=== PATIENT | female | born 1940 | race Caucasian/White ===

== ENCOUNTER → 2017-07-20 | Outpatient (CLI) | payer MEDICARE, OTHER ==
[~2017-07-20] MED LIST: AMLO10 PO; ASPI81CH PO; CLON.2 PO; Indapamide2.5 MG PO; LOSARTAN POTAS100 MG PO; METF500 PO; POTCHL20ER PO; SYNTHROID112 MCG PO
== END | disposition home or self-care (01) ==
LOC: LAB 10:24
DX: L03.116 Cellulitis of left lower limb (principal)
CPT/HCPCS: 87070; 87205

== ENCOUNTER → 2017-08-15 | Outpatient (CLI) | payer MEDICARE, OTHER | END | disposition home or self-care (01) | LOC: LAB 14:30 | DX: L03.116 Cellulitis of left lower limb (principal) | CPT/HCPCS: 87070; 87205 ==

== ENCOUNTER → 2017-09-06 | Outpatient (CLI) | payer MEDICARE, OTHER | END | disposition home or self-care (01) | LOC: LAB 14:30 | DX: L03.115 Cellulitis of right lower limb (principal) | CPT/HCPCS: 87070; 87205 ==

== ENCOUNTER → 2017-10-11 | Outpatient (CLI) | payer MEDICARE, OTHER | END | disposition home or self-care (01) | LOC: LAB SHORT 10:58 → LAB 10:58 | DX: L03.116 Cellulitis of left lower limb (principal) | CPT/HCPCS: 87070; 87205 ==

== ENCOUNTER → 2017-10-18 | Outpatient (CLI) | payer MEDICARE, OTHER | END | disposition home or self-care (01) | LOC: LAB SHORT 11:11 → LAB 11:11 | DX: L08.0 Pyoderma (principal); I83.028 Varicose veins of left lower extremity with ulcer other part of lower leg | CPT/HCPCS: 87070; 87205 ==

== ENCOUNTER → 2017-11-14 | Outpatient (CLI) | payer MEDICARE, OTHER | END | disposition home or self-care (01) | LOC: LAB SHORT 13:52 → LAB 13:52 | DX: L03.116 Cellulitis of left lower limb (principal) | CPT/HCPCS: 87070; 87077; 87186; 87205 ==

== ENCOUNTER → 2017-12-25 | Outpatient (CLI) | payer MEDICARE, OTHER | LOC: LAB SHORT 06:40 → OLS 06:40 | DX: R19.7 Diarrhea, unspecified (principal); Z79.899 Other long term (current) drug therapy | CPT/HCPCS: 87493 ==

== ENCOUNTER → 2018-01-02 | Outpatient (CLI) | payer MEDICARE, OTHER | END | disposition home or self-care (01) | LOC: LAB 11:13 → LAB SHORT 11:13 | DX: L03.116 Cellulitis of left lower limb (principal) | CPT/HCPCS: 87070; 87077; 87186; 87205 ==

== ENCOUNTER → 2018-01-23 | Outpatient (CLI) | payer MEDICARE, OTHER | END | disposition home or self-care (01) | LOC: LAB SHORT 10:30 → LAB 10:30 | DX: L03.116 Cellulitis of left lower limb (principal) | CPT/HCPCS: 87070; 87205 ==

== ENCOUNTER → 2018-02-06 | Outpatient (CLI) | payer MEDICARE, OTHER | END | disposition home or self-care (01) | LOC: PLD 07:55 → LAB SHORT 07:55 | DX: L98.9 Disorder of the skin and subcutaneous tissue, unspecified (principal) | CPT/HCPCS: 88305; 88313 ==

== ENCOUNTER → 2018-02-06 | Outpatient (CLI) | payer MEDICARE, OTHER | END | disposition home or self-care (01) | LOC: LAB 16:34 → LAB SHORT 16:34 | DX: L03.116 Cellulitis of left lower limb (principal) | CPT/HCPCS: 87070; 87077; 87186; 87205 ==

== ENCOUNTER → 2018-02-28 | Outpatient (CLI) | payer MEDICARE, OTHER | LOC: LAB 09:37 → LAB SHORT 09:37 → LAB FUT 02-27 10:50 | DX: K52.1 Toxic gastroenteritis and colitis (principal) | CPT/HCPCS: 87493 ==

== ENCOUNTER 2019-02-06 09:23 | Inpatient (IN) | payer MEDICARE, OTHER ==
[~2019-02-06] VITALS: Ht 162.6 cm; Wt 91.2 kg
[2019-02-06 10:08] LABS: BASOPHILS ABSOLUTE AUTO 0.03 K/mm3 (0.00-0.23); BASOPHILS PERCENT AUTO 0 % (0-2); EOSINOPHILS ABSOLUTE AUTO 0.04 K/mm3 (0.00-0.68); EOSINOPHILS PERCENT AUTO 1 % (0-6); Hematocrit 40.1 % (33.0-51.0); Hemoglobin 13.1 g/dL (11.5-16.0); IMMATURE GRAN ABSOLUTE AUTO 0.01 K/mm3 (0.00-0.10); IMMATURE GRAN PERCENT AUTO 0 % (0-1); LYMPHOCYTES ABSOLUTE AUTO 2.57 K/mm3 (0.84-5.20); LYMPHOCYTES PERCENT AUTO 32 % (21-46); MONOCYTES ABSOLUTE AUTO 0.51 K/mm3 (0.16-1.47); MONOCYTES PERCENT AUTO 6 % (4-13); Mean Corpuscular HGB 29.2 pg (26.0-34.0); Mean Corpuscular HGB Conc 32.7 g/dL (31.5-36.5); Mean Corpuscular Volume 90 fL (80-100); Mean Platelet Volume 9.5 fL (9.1-12.4); NEUTROPHILS ABSOLUTE AUTO 4.84 K/mm3 (1.96-9.15); NEUTROPHILS PERCENT AUTO 61 % (41-73); Platelet Count 480 K/mm3 (150-400); RDW Coefficient Variation 12.9 % (11.7-14.2); RDW Standard Deviation 42.3 fL (35.1-46.3); Red Blood Cell Count 4.48 M/mm3 (3.80-5.20)
[2019-02-06 10:34] LABS: Alanine Aminotransfer (ALT/SGP 28 U/L (12-78); Albumin, Blood 4.3 g/dL (3.4-5.0); Alk Phos 180 U/L (50-136); Anion Gap 13 mmol/L (6-16); Aspartate Aminotrans (AST/SGOT 13 U/L (12-37); Bilirubin, Total 0.7 mg/dL (0.1-1.0); Blood Urea Nitrogen 23 mg/dL (8-24); Bun/Creatinine Ratio 26.2 (12.0-20.0); CO2, Blood 20 mmol/L (21-32); Calcium, Blood 9.4 mg/dL (8.5-10.1); Chloride, Blood 105 mmol/L (98-108); Creatinine, Blood 0.88 mg/dL (0.40-1.00); Globulin, Blood 4.2 g/dL (2.2-4.0); Glomerular Filtration Rate >60 (60-); Glucose, Blood 180 mg/dL (70-99); Potassium, Blood 4.3 mmol/L (3.5-5.5); Sodium, Blood 138 mmol/L (136-145); Total Protein, Blood 8.5 g/dL (6.4-8.2)
[2019-02-06 10:48] LABS: Troponin I 0.101 ng/mL (0.000-0.040)
[2019-02-06 10:49] LABS: International Normalized Ratio 0.97; Prothrombin Time Results 10.3 Sec (9.7-11.5)
[2019-02-06 10:50] LABS: Thyroid Stimulating Hormone 2.67 uIU/mL (0.360-4.800)
[2019-02-06 12:31] LABS: Source, Urine Clean Catch
[2019-02-06 12:35] LABS: Bilirubin, Urine Neg (Neg); Blood, Urine Neg (Neg); Glucose Qualitative, Urine Neg (Neg); Ketones, Urine 1+ (Neg); Leukocyte Esterase, Urine 1+ (Neg); Nitrite, Urine Neg (Neg); Protein, Urine 2+ (Neg); Specific Gravity, Urine 1.015 (1.003-1.022); Urobilinogen, Urine NORM (Normal)
[2019-02-06 12:46] LABS: Appearance, Urine Clear (Clear); Color, Urine Yellow (P-Yellow)
[2019-02-06 12:49] LABS: Bacteria Rare /hpf; Red Blood Cells, Urine 0-2 /hpf (0-2); Squamous Epithelial Cells Mod /hpf (Few)
[2019-02-06 12:50] LABS: Yeast/Fungi Urine Rare /hpf
[2019-02-06] MEDS ORDERED: METF500 PO (15:03)
[2019-02-06] MEDS ORDERED: ZESTRIL40 MG PO (15:03)
[2019-02-06] MEDS ORDERED: PROBIOTIC1 EAC1 PO (15:04)
[2019-02-06] MEDS ORDERED: SIMV10 PO (15:04)
[2019-02-06] MEDS ORDERED: BISA5EC PO (15:04)
[2019-02-06] MEDS ORDERED: Glucosamine-Ch1 EA23 PO (15:06)
[2019-02-06] MEDS ORDERED: Acetaminophen650 M1 PO (15:06)
[2019-02-06 18:03] LABS: Creatine Kinase MB 12.2 ng/mL (0.0-3.6); Creatine Kinase MB Index 6.8 (0.0-4.0)
[2019-02-06 18:14] LABS: Troponin I 2.69 ng/mL (0.000-0.040)
--- NOTE | 2019-02-06 18:43 | NUR ---
PT ARRIVED TO PCU 5 VIA GURNEY FROM ED. REPORT WAS OBTAINED, FAMILY AT BEDSIDE, PT ABLE TO STAND AND TRANSFER TO BED WITH ONE PERSON ASSIST, SHE IS A/OX3, PLEASANT AND COOPERATIVE WITH CARE, FOLLOWS COMMANDS WELL, DENIES ANY CHEST PAIN, REPORTS IT HEAVY, STATES SHE HAS CHRONIC BACK PAIN, LUNGS ARE CLEAR A BIT DIM IN BASES, IS CURRENTLY ON 3 LITERS 02 VIA N/C, RESP EVEN AND UNLABORED DENIES FEELING SOB, HRIRR, TELE IN PLACE RUNNING AFIB PER MONITOR, SEE STRIP, TRACE EDEMA NOTED TO B/L LE, PPP+2, CAP REFILL <3SEC, VS STABLE, AFEBRILE, IV SITES ARE CLEAR AND PATENT, TO R AND L AC'S, BTX4, ABD FLAT SOFT NONTENDER, VOIDS WITHOUT DIFF, SKIN C/W/D, MAEW, MOLLY, CALL LIGHT IN REACH, ORIENTED TO ROOM LAYOUT, AND CALL SYSTEM.
--- NOTE | 2019-02-06 19:30 | NUR ---
PCU NIGHTSHIFT ASSUMED CARE OF PT APPROX. 1900. PT A&OX4. ASSESSMENT COMPLETED. VITAL SIGNS STABLE. PT REPORTS HAVING A HEADACHE THAT COMES AND GOES BUT CURRENLTY TOLERABLE AT THIS TIME. ASSESSED PT NUEROLIGICAL STATUS AND ALL FINDINGS WNL. ALTHOUGH WHEN NUEORLOGIST IN TO SEE PT THIS EVENING AND ASSESSED PT ABILITY TO READ. PT WAS UNABLE TO MAKE SENSE OF WORDS WHEN READING. PT HEART RHYTHM REMAINS IN A. FIB WITH HEART RATE AVERAGING 110'S. PT ABLE TO AMBULATE TO BATHROOM AND TOLERATED WELL. PT REPORTS THAT NOTHING FEELS OUT OF THE NORMAL WITH THIS. BED IN LOW POSITION, CALL LIGHT IN REACH, AND PT DENIES ANY NEEDS
[2019-02-07 00:50] LABS: Creatine Kinase MB 17.1 ng/mL (0.0-3.6); Creatine Kinase MB Index 7.4 (0.0-4.0)
[2019-02-07 00:51] LABS: Troponin I 3.79 ng/mL (0.000-0.040)
--- NOTE | 2019-02-07 01:20 | NUR ---
NOTE PT AWOKE TO USE RESTROOM. AT THIS TIME PEER STAFF MEMEBER ASSISTED PT TO BATHROOM. PEER STAFF MEMBER REPORTED THAT PT REPORTED SHE WAS FEELING NAUSEOUS. PT HAD AN EPISODE OF EMESIS AND REPORTS HER VISION WAS BLURRY AND DIDNT FEEL WELL. ASSESSED PT FURTHER AND NOTED PT TO HAVE RECEPTIVE AND EXPRESSIVE APHAGIA. WHEN ASKED PT HER FIRST AND LAST NAME, PT WAS SLOW TO RESPOND WITH LAST NAME. SHE HAD A HARD TIME SPEAKING THE CORRECT WORD. AFTER ABOUT 5 MINUTES THESE SYSMPTOMS IMPROVED. HAD PEER RN COME IN AND ASSIST WITH NEURO ASSESSMENT. PT REMAINED A&OX4. DURING THE ENTIRE TIME. WILL CONTINUE TO MONITOR PT. PT CURRENLTY BACK IN BED RESTING.
[2019-02-07 03:35] LABS: BASOPHILS ABSOLUTE AUTO 0.02 K/mm3 (0.00-0.23); BASOPHILS PERCENT AUTO 0 % (0-2); EOSINOPHILS PERCENT AUTO 0 % (0-6); Hematocrit 41.5 % (33.0-51.0); Hemoglobin 13.5 g/dL (11.5-16.0); IMMATURE GRAN ABSOLUTE AUTO 0.03 K/mm3 (0.00-0.10); IMMATURE GRAN PERCENT AUTO 0 % (0-1); LYMPHOCYTES ABSOLUTE AUTO 2.16 K/mm3 (0.84-5.20); LYMPHOCYTES PERCENT AUTO 17 % (21-46); MONOCYTES ABSOLUTE AUTO 0.85 K/mm3 (0.16-1.47); MONOCYTES PERCENT AUTO 7 % (4-13); Mean Corpuscular HGB 29.9 pg (26.0-34.0); Mean Corpuscular HGB Conc 32.5 g/dL (31.5-36.5); Mean Corpuscular Volume 92 fL (80-100); Mean Platelet Volume 9.9 fL (9.1-12.4); NEUTROPHILS ABSOLUTE AUTO 9.84 K/mm3 (1.96-9.15); NEUTROPHILS PERCENT AUTO 76 % (41-73); Platelet Count 513 K/mm3 (150-400); RDW Coefficient Variation 13.2 % (11.7-14.2); RDW Standard Deviation 44.1 fL (35.1-46.3); Red Blood Cell Count 4.52 M/mm3 (3.80-5.20)
[2019-02-07 03:57] LABS: Albumin, Blood 3.9 g/dL (3.4-5.0); Albumin/Globulin Ratio 0.9 (0.8-1.8); Bilirubin, Total 0.7 mg/dL (0.1-1.0); Bun/Creatinine Ratio 20.4 (12.0-20.0); Calcium, Blood 9.6 mg/dL (8.5-10.1); Creatinine, Blood 1.08 mg/dL (0.40-1.00); Globulin, Blood 4.4 g/dL (2.2-4.0); Magnesium, Blood 2.2 mg/dL (1.6-2.4); Potassium, Blood 4.8 mmol/L (3.5-5.5); Total Protein, Blood 8.3 g/dL (6.4-8.2)
--- NOTE | 2019-02-07 04:31 | NUR ---
NOTE PT HEART RHYTHM CONVERTED FROM A.FIB TO NORMAL SINUS AT APPROX. 0417. HEART RATE CURRENTLY IN 60'S VIA CHIEF ELECTRICIAN
--- NOTE | 2019-02-07 05:18 | NUR ---
SHIFT SUMMARY PT PLEASANT, COOPERATIVE AND USES CALL LIGHT APPROPRAITELY. PT REMAINS A&OX4. AFTER EPISODE OF BURRIED VISION NOTED PREVIOUSLY PT DID NOT HAVE ANY MORE EPISODES OF THIS, ALTHOUGH PT DID CONTINUE TO HAVE SLIGHT EXPRESSIVE DISPHAGIA. AND SLIGHTLY SLOW TO RESPOND AT TIMES. READING WORDS REMAINS DIFFICULT FOR PT. PT HEART RHYTHM REMAINS NSR IN 60'S AT THIS TIME. HEPARIN DRIP CONTINUES TO RUN. PT HAS DENIED CHEST PAIN, DIZZINESS, LIGHTHEADNESS OR SOB FOR DURATION OF SHIFT. PT CURRENTLY RESTING AT THIS TIME. BED IN LOW POSITION, CALL LIGHT IN REACH AND PT DENIES ANY NEEDS AT THIS TIME. WILL CONTINUE TO MONIOR UNTIL HANDOFF TO DAYSHIFT RN.
--- NOTE | 2019-02-07 05:41 | NUR ---
NOTE PT HAS ATTEMPTED TO GET OUT OF BED ON OWN A COUPLE OF TIMES W/ SOME INCREASED CONFUSION AT TIMES. EACH TIME PT TANGLED IN IV LINES, AND OXYGEN TUBING. DUE TO PT SAFETY PLACED BED ALARM ON AND THREE SIDE RAILS UP. WILL CONTINUE TO MONITOR.
[2019-02-07 09:11] LABS: Creatine Kinase MB 16.6 ng/mL (0.0-3.6); Creatine Kinase MB Index 6.2 (0.0-4.0)
[2019-02-07 09:13] LABS: Troponin I 4.77 ng/mL (0.000-0.040)
--- NOTE | 2019-02-07 17:43 | NUR ---
SHIFT SUMMARY PT RESTING IN BED THROUGHOUT THE DAY. VSS. ALERT AND ORIENTED TO SELF, PLACE, AND MONTH, DISORIENTED TO YEAR. PT HAS RIGHT SIDED VISUAL DEFICIT NOTED. HAVING DIFFICULTY READING WORDS, BUT RECOGNIZES LETTERS AND THEN CAN READ WHAT IT SAYS. NO OTHER DEFICITS NOTED. LUNG SOUNDS CLEAR, NSR RATE 60s ON TELEMETRY. C/O TINGLING TO BILATERAL FEET. PT AMBULATED WITH STANDBY ASSIST TO BATHROOM THIS AM. 1420 PT RETURNED FROM HEART CENTER. PT HAS BEEN RESTING IN BED SINCE ANGIOGRAM. RIGHT WRIST SOFT, NO BLEED OR HEMATOMA NOTED, TR BAND CDI, ARMBOARD IN PLACE. C/O HEADACHE AFTER ANGIOGRAM, MEDICATED WITH PRN PAIN MEDS. PT TOOK AFTERNOON PILLS WITH WATER AFTER PROCEDURE AND PROMPTLY VOMITED 300 ML GREEN LIQUID EMESIS. ZOFRAN IV GIVEN, PT DECLINES NEED FOR ANYTHING PO AT THIS TIME. FAMILY AT BEDSIDE. PT AND FAMILY EDUCATED ON POST PROCEDURE INSTRUCTIONS FOR PT's WRIST, VERBALIZE UNDERSTANDING. PT NEEDS MULTIPLE REMINDERS THROUGHOUT THE SHIFT. AIR BEING REMOVED FROM TR BAND PER PROTOCOL. R WRIST REMAINS SOFT, NO BLEED OR HEMATOMA. PT ON 2-4L OXYGEN VIA NC, SATURATIONS >90%. WILL CONTINUE TO MONITOR.
--- NOTE | 2019-02-07 20:40 | NUR ---
DR. MINA BEDSIDE WITH PATIENT.
--- NOTE | 2019-02-08 00:54 | NUR ---
ASSUMED CARE OF PATIENT AT APPROXIMATELY 1910 FROM COURTNEY Foreman RN. PATIENT ALERT AND ORIENTED AT TIMES; CONFUSED AT TIMES; REPORTS TROUBLE REMEMBERING WORDS AND REPORTS SHE IS AT HOME AT TIMES; PATIENT ALSO REPORTS EVENTS THAT OCCURED TODAY HAPPENED YESTERDAY; PATIENT REPORTED AT SHIFT CHANGE THAT SHE THOUGHT IT WAS MORNING. PATIENT NEEDS CONTINUOUS REMINDERS NO TO USE RIGHT ARM; NOT TO REMOVE RIGHT ARMBOARD. 5CC OF AIR REMOVED BY THIS RN; TR BAND REMOVED; SOME DRIED BLOOD NOTED; NO PAIN, NUMBNESS, TINGLING, DIZZINESS OR NAUSEA REPORT. NO S/S OF ACTIVE BLEEDING, HEMATOMA OR BRUISING NOTED. ARMBOARD REPLACED MULTIPLE TIMES. PATIENT DOESNT CALL BEFORE AMBUALTION AT TIMES. NSR ON TELE; OXYGEN SATURATION ABOVE 90% ON 3-4 LPM VIA NC; PATIENT REPORTS SHE DOESNT NORMALLY WEAR OXYGEN AT HOME. PATIENT'S SISTERS AND DAUGHTER AT BEDSIDE DURING BEDSIDE REPORT; LEFT WITHIN AN HOUR. PATIENT WAS INCONTINENT OF URINE; REPORTS SHE NORMALLY WEARS PADS AT HOME; ATTENDS PLACED. DR. MINA AT BEDSIDE; REPORTS MOST LIKELY TIA. PATIENT REPORTS "BARE SPOTS" IN MEMORY; ALSO THAT SHE "SEE'S DOUBLE" AT TIMES. PATIENT REMOVES OXYGEN AND ARMBOARD WHILE SLEEPING. VSS. 2X PIV S/L. PATIENT CURRENTLY SLEEPING IN BED; CALL LIGHT IN REACH; BED IN LOWEST POSISTION; BED ALARM ON; WILL CONTINUE TO MONITOR AND ASSESS UNTIL END OF SHIFT.
--- NOTE | 2019-02-08 01:22 | NUR ---
PATIENT HAD REMOVED TELE, GOWN, ARMBOARD AND OXYGEN.
[2019-02-08 04:01] LABS: BASOPHILS ABSOLUTE AUTO 0.01 K/mm3 (0.00-0.23); BASOPHILS PERCENT AUTO 0 % (0-2); EOSINOPHILS PERCENT AUTO 0 % (0-6); Hematocrit 36.1 % (33.0-51.0); Hemoglobin 11.7 g/dL (11.5-16.0); IMMATURE GRAN ABSOLUTE AUTO 0.05 K/mm3 (0.00-0.10); IMMATURE GRAN PERCENT AUTO 0 % (0-1); LYMPHOCYTES ABSOLUTE AUTO 1.45 K/mm3 (0.84-5.20); LYMPHOCYTES PERCENT AUTO 13 % (21-46); MONOCYTES PERCENT AUTO 10 % (4-13); Mean Corpuscular HGB 29.5 pg (26.0-34.0); Mean Corpuscular HGB Conc 32.4 g/dL (31.5-36.5); Mean Corpuscular Volume 91 fL (80-100); Mean Platelet Volume 10.8 fL (9.1-12.4); NEUTROPHILS ABSOLUTE AUTO 8.81 K/mm3 (1.96-9.15); NEUTROPHILS PERCENT AUTO 77 % (41-73); Platelet Count 304 K/mm3 (150-400); RDW Coefficient Variation 13.6 % (11.7-14.2); RDW Standard Deviation 45.2 fL (35.1-46.3); Red Blood Cell Count 3.97 M/mm3 (3.80-5.20); White Blood Cell Count 11.52 K/mm3 (4.00-11.30)
[2019-02-08 05:59] LABS: Albumin, Blood 3.3 g/dL (3.4-5.0); Albumin/Globulin Ratio 0.8 (0.8-1.8); Bilirubin, Total 0.6 mg/dL (0.1-1.0); Bun/Creatinine Ratio 26.1 (12.0-20.0); Calcium, Blood 9.3 mg/dL (8.5-10.1); Creatinine, Blood 1.15 mg/dL (0.40-1.00); Potassium, Blood 4.8 mmol/L (3.5-5.5); Total Protein, Blood 7.3 g/dL (6.4-8.2)
--- NOTE | 2019-02-08 06:46 | NUR ---
PATIENT SLEPT ABOUT SEVEN HOURS; TR BAND REMOVED BEFORE MIDNIGHT; TEGADERM PLACED. PATIENT MORE ALERT AND ORIENTED THIS AM. VSS. WILL CONTINUE TO MONITOR AND ASSESS UNTIL END OF SHIFT.
--- NOTE | 2019-02-08 08:40 | NUR ---
INITIAL ASSESSMENT PATIENT RESTING IN BED UPON ENTERING ROOM. PATIENT AFEBRILE. PATIENT ALERT AND ORIENTED EXCEPT TO TOWN AND THAT WE ARE IN A HOSPITAL. PATIENT SEEMS MOSTLY ORIENTED BUT DOES MAKE CONFUSED STATEMENTS. ONE SUCH STATEMENT MADE WHEN NURSE ON COMPUTER IN ROOM DOCUMENTING. PATIENT STATED " THAT IS SO NEAT THAT IT GOES TO BUSINESS! I WAS JUST WATCHING TV ON THERE!". PATIENT WEAK. SBA TO CHAIR. PATIENT SATTING 90% AND GREATER ON 2 L NC. FAMILY REPORTS THAT PATIENT HAS SLEEP APNEA BUT DOES NOT WEAR MASK OR O2 AT HOME. PATIENT IN SB TO SR, HR 50S TO 60S. BP STABLE. LAST BM NOTED YESTERDAY. ATTENDS IN PLACE FOR INCONTINENCE- C/D/I. SCATTERED BRUISING NOTED. PATTERN DEVELOPER ACCESS SITE TO R RADIAL SITE WNL- NO BLEEDING, BRUISING, HEMATOMA NOTED. IVS FLUSHED AND SALINE LOCKED. BED LOW, CALL LIGHT IN REACH. WILL CONTINUE TO MONITOR PATIENT FREQUENTLY THROUGHOUT SHIFT.
--- NOTE | 2019-02-08 12:23 | NUR ---
PATIENT SLEEPING SOUNDLY UPON ENTERING ROOM. PATIENT HAS NO SIGNS OF PAIN OR DISCOMFORT AT THIS TIME. VITAL SIGNS STABLE. NO ACUTE CHANGES TO REPORT ON AT THIS TIME. REPORT GIVEN TO ASSUMING NURSE, ANNETTA GARCIA.
--- NOTE | 2019-02-08 12:31 | NUR ---
RECEIVED REPORT FROM CASSY JUNIOR RN, ASSUMED CARE, PATIENT IS SLEEPING AT THIS TIME, FAMILY AT BEDSIDE, CALL LIGHT IN REACH, WILL CONTINUE TO MONITOR.
--- NOTE | 2019-02-08 14:09 | NUR ---
REPORT CALLED TO DARRON EARLY RN, ON MEDICAL FLOOR, ROOM 308 STILL BEING CLEANED, WILL CALL WHEN READY.
--- NOTE | 2019-02-08 15:14 | NUR ---
PATIENT TO ROOM 308 VIA WHEELCHAIR WITH ALL BELONGINGS.
--- NOTE | 2019-02-08 15:31 | NUR ---
PT ARRIVED TO THE MEDICAL FLOOR FROM PCU 5 A/OX3, PLEASANT AND COOPERATIVE, THE PT APPEARS TO BE BREATHING EASILY ON RA, THE PT DENIES ANY PAIN AT THIS TIME, PT WAS ORIENTED TO THE ROOM LAYOUT AND CALL SYSTEM, CALL LIGHT IN REACH, TELE BOX VERIFIED THE CORRECT ONE, RT NOTIFIED OF CONTINUOUS BIOX ORDER, FAMILY IS AT THE BEDSIDE
--- NOTE | 2019-02-08 17:04 | NUR ---
PT A/OX3, PLEASANT AND COOPERATIVE, PT IS UP WITH ASSIST, MULTIPLE FAMILY IS AT THE BEDSIDE, THE PT CAME UP FROM THE PCU TODAY ON RA, HOWEVER, HER O2 SATS WERE 86 -89%, O2 WAS REAPLIED AT THIS TIME AT 1.5L/MIN, PT DENIED ANY APIN, HAS PERIODS OF FORGETFULLNESS, PT RIGHT WRIST INSERTION SITE LOOKS CLEAR, CLEAN AND DRY, CALL LIT IN REACH, WILL CONTINUE TO MONITOR AND ASSESS FOR CHANGES
--- NOTE | 2019-02-09 03:50 | NUR ---
sHIFT SUMMARY: pT HAS SLEPT WELL OVERNIGHT WITH NO C/O DISCOMFORT. Right wrist cath site WNL. No swelling or redness noted. Pt on telemetry- bradycardia in the 50's overnight. Lopressor held because of heart ratew. Blood sugar was 157 last pm needing no coverage.
[2019-02-09 05:03] LABS: Albumin, Blood 3.1 g/dL (3.4-5.0); Albumin/Globulin Ratio 0.8 (0.8-1.8); Bilirubin, Total 0.5 mg/dL (0.1-1.0); Bun/Creatinine Ratio 25.9 (12.0-20.0); Calcium, Blood 8.9 mg/dL (8.5-10.1); Creatinine, Blood 1.93 mg/dL (0.40-1.00); Globulin, Blood 3.9 g/dL (2.2-4.0); Potassium, Blood 4.7 mmol/L (3.5-5.5)
--- NOTE | 2019-02-09 16:29 | NUR ---
PT IS A/OX3, PLEASANT AND COOPERATIVE, THE PT IS UP WITH MINIMAL ASSIST, TO THE CHAIR AND BATHROOM, THE PT IS MILDLY SOB WITH ACTIVITY, THE PT APPEARS TO BE BREATHING EASILY AT REST ON 2L/MIN O2 VIA NC, THE PT'S HR REMAINED BRAYCARDIC T/O THE SHIFT AND HER LOPRESSOR WAS HELD, PT YOHANA JANG SHOWER TODAY, THE PT HAS HAD MULTIPLE FAMILY AT THE BEDSIDE T/O THE DAY, CALL LIGHT IN REACH
--- NOTE | 2019-02-10 03:20 | NUR ---
SHIFT SUMMARY PATIENT HAD NO ACUTE CHANGES OBSERVED THIS SHIFT. AXO X3 AND SBA TO INDEPENDENT IN ROOM. PIV REMAINS INTACT. CBG 116. ON 1/2 L O2 NC. FIRE HYDRANT OPERATOR REPORTS NSR 76 W/PVC. PATIENT LOPRESSOR HELD DURING DAY SHIFT AND BP ELEVATED TO 180/93. SCHEDULE LOPRESSOR GIVEN PER EMAR. HR IN THE 70'S. DENIES PAIN, SOB, AND N/V. AFEBRILE. CALL LIGHT IN REACH. BED IN LOWEST POSITION. WILL CONTINUE TO MONITOR UNTIL DAY SHIFT NURSE ASSUMES CARE.
[2019-02-10 04:40] LABS: Hematocrit 36.1 % (33.0-51.0); Hemoglobin 11.8 g/dL (11.5-16.0); Mean Corpuscular HGB 29.5 pg (26.0-34.0); Mean Corpuscular HGB Conc 32.7 g/dL (31.5-36.5); Mean Corpuscular Volume 90 fL (80-100); Mean Platelet Volume 9.9 fL (9.1-12.4); Platelet Count 410 K/mm3 (150-400); RDW Coefficient Variation 13.1 % (11.7-14.2); White Blood Cell Count 7.63 K/mm3 (4.00-11.30)
[2019-02-10 05:01] LABS: Bun/Creatinine Ratio 37.5 (12.0-20.0); Calcium, Blood 9.5 mg/dL (8.5-10.1); Creatinine, Blood 1.04 mg/dL (0.40-1.00); Potassium, Blood 4.2 mmol/L (3.5-5.5)
--- NOTE | 2019-02-10 08:39 | NUR ---
PT ON RA. PT SATING AT 93 ON RA. PT TOLERATING WELL. DENIES SOB. WILL CONTINUE TO MONITOR.
[2019-02-10] MEDS ORDERED: METO25 PO (09:18)
[2019-02-10] MEDS ORDERED: ELIQUIS2.5 MG PO (09:19)
[2019-02-10] MEDS ORDERED: PANT20 PO (09:20)
[2019-02-10] MEDS ORDERED: FURO20 PO (09:20)
--- NOTE | 2019-02-10 11:50 | NUR ---
PT DISCHARGED PT DISCHARGED AT 1145. PT IN STABLE CONDITION WITH VSS. PT & DAUGHTER EDUCATED ON DC INSTRUCTION & FOLLOW UP APPOINTMENTS/NEW MEDS. BOTH DENIED FURTHER NEED FOR INSTRUCTION. IV REMOVED & INTACT. PT WHEELED OUT BY AIDE & DRIVEN HOME BY DAUGHTER.
--- NOTE | 2019-02-12 10:22 | NUR ---
DR LOPEZ'S OFFICE WILL CALL PATIENT TO SET UP AN APPOINTMENT WITHIN ONE WEEK OF DISCGARGE.
== END 2019-02-10 11:49 | disposition home health service (06) | DRG 280 ==
LOC: ER 09:23 → PCU 15:13 → MEDS 02-08 15:07 → ENPENDDIS 02-10 09:06 → MEDS 02-10 11:49
PROVIDERS: Emergency Medicine; Internal Medicine Interventional Cardiology; ADMIT Internal Medicine
PROC: 4A023N7 Measurement of Cardiac Sampling and Pressure, Left Heart, Percutaneous Approach (ICD-10-PCS; principal; 2019-02-07)
PROC: B210YZZ Fluoroscopy of Single Coronary Artery using Other Contrast (ICD-10-PCS; 2019-02-07)
DX: I48.0 Paroxysmal atrial fibrillation (principal); I21.4 Non-ST elevation (NSTEMI) myocardial infarction; J96.01 Acute respiratory failure with hypoxia; N17.9 Acute kidney failure, unspecified; G45.9 Transient cerebral ischemic attack, unspecified; I50.20 Unspecified systolic (congestive) heart failure; I51.81 Takotsubo syndrome; E03.9 Hypothyroidism, unspecified; E11.9 Type 2 diabetes mellitus without complications; I11.0 Hypertensive heart disease with heart failure; G25.81 Restless legs syndrome; E78.5 Hyperlipidemia, unspecified
CPT/HCPCS: 36415; 70450; 70496; 70498; 70551; 71046; 80048; 80053; 81001; 82550; 82553; 82947; 83735; 84443; 84484; 85025; 85027; 85347; 85610; 85730; 87086; 93005; 93010; 93458; 93571; 96365-59; 96366; 96368; 96372-59; 96376-59; 97116; 97162; 97530; 99152; 99153; 99285-25; A9270; C1769; C1887; C1894; C8929; C9113; J1644; J1940; J2250; J2405; J3010; J3475; J7030; Q9957; Q9967

== ENCOUNTER → 2019-05-07 | Outpatient (CLI) | payer MEDICARE, OTHER ==
[~2019-05-07] MED LIST changes: +Acetaminophen650 M1 PO; +BISA5EC PO; +ELIQUIS2.5 MG PO; +FURO20 PO; +Glucosamine-Ch1 EA23 PO; +METO25 PO; +PANT20 PO; +PROBIOTIC1 EAC1 PO; +SIMV10 PO; +ZESTRIL40 MG PO
== END | disposition home or self-care (01) ==
LOC: PLD 10:23 → LAB SHORT 10:23
DX: D48.5 Neoplasm of uncertain behavior of skin (principal)
CPT/HCPCS: 88305

== ENCOUNTER → 2019-12-25 | Outpatient (CLI) | payer MEDICARE, OTHER ==
[2019-12-25 20:23] LABS: Adenovirus F 40/41 Not Detected (NOT DETECT); Astrovirus Not Detected (NOT DETECT); Campylobacter Sp Not Detected (NOT DETECT); Cryptosporidium Not Detected (NOT DETECT); Cyclospora Cayetanensis Not Detected (NOT DETECT); E. Coli O157 Not Detected (NOT DETECT); Entamoeba Histolytica Not Detected (NOT DETECT); Enteroaggregative E. coli-EAEC Not Detected (NOT DETECT); Enteropathogenic E. coli-EPEC Not Detected (NOT DETECT); Enterotoxigenic E. coli-ETEC Not Detected (NOT DETECT); Giardia Lamblia Not Detected (NOT DETECT); Norovirus GI/GII Not Detected (NOT DETECT); Plesiomonas Shigelloides Not Detected (NOT DETECT); Rotavirus A Not Detected (NOT DETECT); Salmonella Sp Not Detected (NOT DETECT); Sapovirus Not Detected (NOT DETECT); Shiga Toxin-prod E. coli-STEC Not Detected (NOT DETECT); Shigella/Enteroin E. coli-EIEC Not Detected (NOT DETECT); Vibrio Cholerae Not Detected (NOT DETECT); Vibrio Sp Not Detected (NOT DETECT); Yersinia Enterocolitica Not Detected (NOT DETECT)
== END | disposition home or self-care (01) ==
LOC: LAB 13:57 → LAB SHORT 13:57 → LAB FUT 11-04 11:15
PROVIDERS: Nurse Practitioner Family
DX: R19.7 Diarrhea, unspecified (principal)
CPT/HCPCS: 0097U; 87177; 87209; 89055

== ENCOUNTER → 2020-04-08 | Outpatient (CLI) | payer MEDICARE, OTHER | END | disposition home or self-care (01) | LOC: LAB SHORT 08:50 → PLD 08:50 | DX: D48.5 Neoplasm of uncertain behavior of skin (principal) | CPT/HCPCS: 88305 ==

== ENCOUNTER → 2020-05-19 | Outpatient (CLI) | payer MEDICARE, OTHER ==
[2020-05-19 19:30] LABS: Protein, Urine Quantitative 142.6 mg/dL (0.0-11.9)
== END | disposition home or self-care (01) ==
LOC: LAB 12:33 → LAB SHORT 12:33
PROVIDERS: Internal Medicine
DX: R80.9 Proteinuria, unspecified (principal)
CPT/HCPCS: 81050; 82570; 84156

== ENCOUNTER 2021-08-08 03:08 | Emergency (ER) | payer MEDICARE, OTHER ==
[~2021-08-08] VITALS: Ht 165.1 cm; Wt 92.5 kg
[2021-08-08 03:39] LABS: BASOPHILS ABSOLUTE AUTO 0.02 K/mm3 (0.00-0.23); BASOPHILS PERCENT AUTO 0 % (0-2); EOSINOPHILS PERCENT AUTO 2 % (0-6); Hematocrit 34.7 % (33.0-51.0); Hemoglobin 11.5 g/dL (11.5-16.0); IMMATURE GRAN ABSOLUTE AUTO 0.01 K/mm3 (0.00-0.10); IMMATURE GRAN PERCENT AUTO 0 % (0-1); LYMPHOCYTES ABSOLUTE AUTO 2.08 K/mm3 (0.84-5.20); LYMPHOCYTES PERCENT AUTO 31 % (21-46); MONOCYTES ABSOLUTE AUTO 0.64 K/mm3 (0.16-1.47); MONOCYTES PERCENT AUTO 10 % (4-13); Mean Corpuscular HGB Conc 33.1 g/dL (31.5-36.5); Mean Corpuscular Volume 88 fL (80-100); NEUTROPHILS ABSOLUTE AUTO 3.77 K/mm3 (1.96-9.15); NEUTROPHILS PERCENT AUTO 57 % (41-73); Platelet Count 339 K/mm3 (150-400); RDW Coefficient Variation 13.3 % (11.7-14.2); RDW Standard Deviation 42.9 fL (35.1-46.3); Red Blood Cell Count 3.96 M/mm3 (3.80-5.20); White Blood Cell Count 6.62 K/mm3 (4.00-11.30)
[2021-08-08 03:57] LABS: Bun/Creatinine Ratio 19.8 (12.0-20.0); Calcium, Blood 8.6 mg/dL (8.5-10.1); Creatinine, Blood 1.06 mg/dL (0.40-1.00); Potassium, Blood 3.1 mmol/L (3.5-5.5)
== END 2021-08-08 05:11 | disposition home or self-care (01) ==
LOC: ER 03:08
PROVIDERS: Student in an Organized Health Care Education/Training Program
DX: R04.0 Epistaxis (principal); I10 Essential (primary) hypertension; E11.9 Type 2 diabetes mellitus without complications; Z79.899 Other long term (current) drug therapy; Z79.84 Long term (current) use of oral hypoglycemic drugs
CPT/HCPCS: 30903; 36415; 80048; 85025; 99283-25; A9270

== ENCOUNTER → 2022-07-26 | Outpatient (CLI) | payer MEDICARE, OTHER | LOC: LAB SHORT 08:01 → PLD 08:01 | DX: D04.5 Carcinoma in situ of skin of trunk (principal) | CPT/HCPCS: 88305 ==

== ENCOUNTER 2022-11-24 06:13 | Emergency (ER) | payer MEDICARE, OTHER ==
[~2022-11-24] VITALS: Ht 165.1 cm; Wt 98.0 kg
[2022-11-24 08:57] LABS: BASOPHILS ABSOLUTE AUTO 0.04 K/mm3 (0.00-0.23); BASOPHILS PERCENT AUTO 1 % (0-2); EOSINOPHILS ABSOLUTE AUTO 0.06 K/mm3 (0.00-0.68); EOSINOPHILS PERCENT AUTO 1 % (0-6); Hematocrit 36.9 % (33.0-51.0); Hemoglobin 12.2 g/dL (11.5-16.0); IMMATURE GRAN ABSOLUTE AUTO 0.03 K/mm3 (0.00-0.10); IMMATURE GRAN PERCENT AUTO 0 % (0-1); LYMPHOCYTES PERCENT AUTO 27 % (21-46); MONOCYTES ABSOLUTE AUTO 0.84 K/mm3 (0.16-1.47); MONOCYTES PERCENT AUTO 10 % (4-13); Mean Corpuscular HGB 30.1 pg (26.0-34.0); Mean Corpuscular HGB Conc 33.1 g/dL (31.5-36.5); Mean Corpuscular Volume 91 fL (80-100); Mean Platelet Volume 9.3 fL (9.1-12.4); NEUTROPHILS ABSOLUTE AUTO 5.12 K/mm3 (1.96-9.15); NEUTROPHILS PERCENT AUTO 61 % (41-73); Platelet Count 366 K/mm3 (150-400); RDW Coefficient Variation 13.4 % (11.7-14.2); RDW Standard Deviation 45.5 fL (35.1-46.3); Red Blood Cell Count 4.05 M/mm3 (3.80-5.20); White Blood Cell Count 8.39 K/mm3 (4.00-11.30)
[2022-11-24 09:18] LABS: Albumin, Blood 3.1 g/dL (3.4-5.0); Albumin/Globulin Ratio 0.8 (0.8-1.8); Bilirubin, Total 0.5 mg/dL (0.1-1.0); Bun/Creatinine Ratio 25.2 (12.0-20.0); Calcium, Blood 8.8 mg/dL (8.5-10.1); Creatinine, Blood 1.03 mg/dL (0.40-1.00); Globulin, Blood 4.1 g/dL (2.2-4.0); Potassium, Blood 3.5 mmol/L (3.5-5.5); Total Protein, Blood 7.2 g/dL (6.4-8.2)
[2022-11-24 10:20] VITALS: BP 178/90
== END 2022-11-24 10:21 | disposition home or self-care (01) ==
LOC: ER 06:13
PROVIDERS: Student in an Organized Health Care Education/Training Program
DX: I11.0 Hypertensive heart disease with heart failure (principal); I50.9 Heart failure, unspecified; E11.9 Type 2 diabetes mellitus without complications; Z79.01 Long term (current) use of anticoagulants; Z79.84 Long term (current) use of oral hypoglycemic drugs; Z79.899 Other long term (current) drug therapy
CPT/HCPCS: 80053; 83880; 85025; 93970; A9270

== ENCOUNTER 2023-04-14 01:55 | Day surgery (SDC) | payer MEDICARE, OTHER | END 2023-04-14 23:38 | disposition home or self-care (01) | LOC: WOUND 01:55 | DX: I87.312 Chronic venous hypertension (idiopathic) with ulcer of left lower extremity (principal); L97.822 Non-pressure chronic ulcer of other part of left lower leg with fat layer exposed; E11.622 Type 2 diabetes mellitus with other skin ulcer; L57.0 Actinic keratosis; L81.4 Other melanin hyperpigmentation; L82.1 Other seborrheic keratosis; I87.2 Venous insufficiency (chronic) (peripheral); E11.51 Type 2 diabetes mellitus with diabetic peripheral angiopathy without gangrene; I11.0 Hypertensive heart disease with heart failure; I50.9 Heart failure, unspecified; I48.91 Unspecified atrial fibrillation | CPT/HCPCS: A9270; G0463 ==

== ENCOUNTER 2023-04-22 05:04 | Day surgery (SDC) | payer MEDICARE, OTHER | END 2023-04-22 22:43 | disposition home or self-care (01) | LOC: WOUND 05:04 | DX: E11.622 Type 2 diabetes mellitus with other skin ulcer (principal); L97.822 Non-pressure chronic ulcer of other part of left lower leg with fat layer exposed; L57.0 Actinic keratosis; L81.4 Other melanin hyperpigmentation; L82.1 Other seborrheic keratosis; I87.312 Chronic venous hypertension (idiopathic) with ulcer of left lower extremity; I87.2 Venous insufficiency (chronic) (peripheral); E11.51 Type 2 diabetes mellitus with diabetic peripheral angiopathy without gangrene | CPT/HCPCS: A9270; G0463 ==

== ENCOUNTER 2023-04-29 03:07 | Day surgery (SDC) | payer MEDICARE, OTHER | END 2023-04-29 23:43 | disposition home or self-care (01) | LOC: WOUND 03:07 | DX: I87.312 Chronic venous hypertension (idiopathic) with ulcer of left lower extremity (principal); L57.0 Actinic keratosis; L81.4 Other melanin hyperpigmentation; L82.1 Other seborrheic keratosis; E11.622 Type 2 diabetes mellitus with other skin ulcer; L97.921 Non-pressure chronic ulcer of unspecified part of left lower leg limited to breakdown of skin; I73.9 Peripheral vascular disease, unspecified | CPT/HCPCS: A9270; G0463 ==

== ENCOUNTER 2023-05-06 05:03 | Day surgery (SDC) | payer MEDICARE, OTHER | END 2023-05-06 22:52 | disposition home or self-care (01) | LOC: WOUND 05:03 | DX: E11.622 Type 2 diabetes mellitus with other skin ulcer (principal); I87.2 Venous insufficiency (chronic) (peripheral); L97.822 Non-pressure chronic ulcer of other part of left lower leg with fat layer exposed; L57.0 Actinic keratosis; L81.4 Other melanin hyperpigmentation; L97.921 Non-pressure chronic ulcer of unspecified part of left lower leg limited to breakdown of skin; I87.312 Chronic venous hypertension (idiopathic) with ulcer of left lower extremity; E11.51 Type 2 diabetes mellitus with diabetic peripheral angiopathy without gangrene | CPT/HCPCS: G0463 ==

== ENCOUNTER 2023-05-13 01:53 | Day surgery (SDC) | payer MEDICARE, OTHER | END 2023-05-13 22:50 | disposition home or self-care (01) | LOC: WOUND 01:53 | DX: I87.312 Chronic venous hypertension (idiopathic) with ulcer of left lower extremity (principal); L97.822 Non-pressure chronic ulcer of other part of left lower leg with fat layer exposed; L57.0 Actinic keratosis; L81.4 Other melanin hyperpigmentation; L82.1 Other seborrheic keratosis; L97.921 Non-pressure chronic ulcer of unspecified part of left lower leg limited to breakdown of skin; I87.2 Venous insufficiency (chronic) (peripheral); E11.622 Type 2 diabetes mellitus with other skin ulcer; E11.51 Type 2 diabetes mellitus with diabetic peripheral angiopathy without gangrene | CPT/HCPCS: G0463 ==

== ENCOUNTER 2023-05-20 03:00 | Day surgery (SDC) | payer MEDICARE, OTHER | END 2023-05-20 22:37 | disposition home or self-care (01) | LOC: WOUND 03:00 | DX: I87.312 Chronic venous hypertension (idiopathic) with ulcer of left lower extremity (principal); L57.0 Actinic keratosis; L81.4 Other melanin hyperpigmentation; L82.1 Other seborrheic keratosis; E11.622 Type 2 diabetes mellitus with other skin ulcer; L97.921 Non-pressure chronic ulcer of unspecified part of left lower leg limited to breakdown of skin; E11.51 Type 2 diabetes mellitus with diabetic peripheral angiopathy without gangrene | CPT/HCPCS: G0463 ==

== ENCOUNTER 2023-06-10 03:03 | Day surgery (SDC) | payer MEDICARE, OTHER | END 2023-06-10 23:11 | disposition home or self-care (01) | LOC: WOUND 03:03 | DX: E11.622 Type 2 diabetes mellitus with other skin ulcer (principal); L97.822 Non-pressure chronic ulcer of other part of left lower leg with fat layer exposed; L57.0 Actinic keratosis; L81.4 Other melanin hyperpigmentation; L82.1 Other seborrheic keratosis; L97.921 Non-pressure chronic ulcer of unspecified part of left lower leg limited to breakdown of skin; I87.312 Chronic venous hypertension (idiopathic) with ulcer of left lower extremity; I87.2 Venous insufficiency (chronic) (peripheral); E11.51 Type 2 diabetes mellitus with diabetic peripheral angiopathy without gangrene | CPT/HCPCS: G0463 ==

== ENCOUNTER 2023-06-13 19:33 | Inpatient (IN) | payer MEDICARE, OTHER ==
[~2023-06-13] VITALS: Ht 165.1 cm; Wt 90.5 kg
[2023-06-13 20:51] LABS: BASOPHILS ABSOLUTE AUTO 0.03 K/mm3 (0.00-0.23); BASOPHILS PERCENT AUTO 0 % (0-2); EOSINOPHILS ABSOLUTE AUTO 0.03 K/mm3 (0.00-0.68); EOSINOPHILS PERCENT AUTO 0 % (0-6); Hematocrit 35.1 % (33.0-51.0); Hemoglobin 11.5 g/dL (11.5-16.0); IMMATURE GRAN ABSOLUTE AUTO 0.03 K/mm3 (0.00-0.10); IMMATURE GRAN PERCENT AUTO 0 % (0-1); LYMPHOCYTES ABSOLUTE AUTO 1.28 K/mm3 (0.84-5.20); LYMPHOCYTES PERCENT AUTO 10 % (21-46); MONOCYTES ABSOLUTE AUTO 1.19 K/mm3 (0.16-1.47); MONOCYTES PERCENT AUTO 9 % (4-13); Mean Corpuscular HGB 29.1 pg (26.0-34.0); Mean Corpuscular HGB Conc 32.8 g/dL (31.5-36.5); Mean Corpuscular Volume 89 fL (80-100); Mean Platelet Volume 9.1 fL (9.1-12.4); NEUTROPHILS ABSOLUTE AUTO 10.24 K/mm3 (1.96-9.15); NEUTROPHILS PERCENT AUTO 80 % (41-73); Platelet Count 459 K/mm3 (150-400); RDW Coefficient Variation 13.5 % (11.7-14.2); RDW Standard Deviation 44.3 fL (35.1-46.3); Red Blood Cell Count 3.95 M/mm3 (3.80-5.20)
[2023-06-13 21:13] LABS: Albumin, Blood 3.1 g/dL (3.4-5.0); Albumin/Globulin Ratio 0.6 (0.8-1.8); Bilirubin, Total 0.6 mg/dL (0.1-1.0); Bun/Creatinine Ratio 15.4 (12.0-20.0); Calcium, Blood 8.9 mg/dL (8.5-10.1); Creatinine, Blood 0.98 mg/dL (0.40-1.00); Globulin, Blood 4.9 g/dL (2.2-4.0); Potassium, Blood 3.4 mmol/L (3.5-5.5)
[2023-06-13 23:33] LABS: BODY FLUID RBC 0.002 M/mm3 (0-0)
[2023-06-14 00:04] LABS: RBC Count, Synovial Fluid 2000 /mm3 (0-0); WBC Count, Synovial Fluid 37520 /mm3 (0-180)
[2023-06-14 00:06] LABS: Appearance, Synovial Fluid Cloudy (Clear); Color, Synovial Fluid Yellow (None-P Yel)
[2023-06-14 00:09] LABS: Body Fluid Crystals POS (NEGATIVE)
[2023-06-14 01:01] LABS: Lymphs, Synovial Fluid 1 % (0-15); Monocytes/Macrophages, Synovia 2 % (0-65); Neutrophils, Synovial Fluid 97 % (0-24)
[2023-06-14] MEDS ORDERED: Bisoprolol Fumar5 MG PO (02:28)
[2023-06-14] MEDS ORDERED: HYDRA50 PO (02:29)
[2023-06-14] MEDS ORDERED: ELIQUIS5 M2 PO (02:30)
[2023-06-14 03:41] VITALS: BP 183/67
[2023-06-14 06:35] VITALS: BP 204/79
[2023-06-14 06:39] VITALS: BP 174/151
[2023-06-14 08:15] VITALS: BP 165/73
--- NOTE | 2023-06-14 14:05 | NUR ---
1350- PT REQUESTED AMA PAPERS BUT REFUSED TO SIGN THEM. JESSICA AND THIS RN SIGNED THEM. PT INFORMED OF RISKS VERSUS BENEFITS OF LEAVING THE HOSPITAL. PT HAD A FRIEND PICK HER UP. JUDITH AHN REMOVED PRIOR TO PT LEAVING.
[2023-06-14 15:40] VITALS: BP 168/77
[2023-06-14 19:37] VITALS: BP 153/71
--- NOTE | 2023-06-14 19:43 | NUR ---
SUMMARY- PT AAOX4 THIS SHIFT. PT BEDREST-UNABLE TO LIFT RIGHT LEG. THIS RN TOOK PICTURES OF PT'S LLE WOUND AND PLACED IN CHART. NORCO GIVEN TO PT FOR RIGHT KNEE PAIN THIS SHIFT-PT STATED THE NORCO HELPED.
--- NOTE | 2023-06-15 00:24 | NUR ---
06/14/232113 PT LYING IN BED, DENIES PAIN, WOUND TO Stephen ASCENCIO-PT SEES WOUND CLINIC FOR THIS. BS WAS 180. PUREWICK IN PLACE, CLEAR SLIGHTLY DARK URINE. PT DENIES NEED FOR ANYTHING ELSE AT THIS TIME. NO APPARENT SIGNS OF DISTRESS. CALL LIGHT IS IN REACH.
--- NOTE | 2023-06-15 00:26 | NUR ---
PT LYING IN BED, EYES CLOSED, APPEARS TO BE RESTING. BREATHING IS EVEN, UNLABORED. NO APPARENT SIGNS OF DISTRESS. CALL LIGHT IS IN REACH.
--- NOTE | 2023-06-15 03:42 | NUR ---
PT IS LYING IN BED, EYES CLOSED, APPEARS TO BE RESTING. BREATHING IS EVEN, UNLABORED. NO APPARENT SIGNS OF DISTRESS. CALL LIGHT IS IN REACH.
--- NOTE | 2023-06-15 03:42 | NUR ---
0200 PT LYING IN BED, EYES CLOSED, APPEARS TO BE RESTING. BREATHING IS EVEN, UNLABORED. NO APPARENT SIGNS OF DISTRESS. CALL LIGHT IS IN REACH.
[2023-06-15 04:49] VITALS: BP 175/67
--- NOTE | 2023-06-15 05:10 | NUR ---
PT IS AAO X 4, ON RA. REPORTS PAIN WITH MOVEMENT ONLY AND HAS DECLINED PAIN MEDS SO FAR. USING A PUREWICK, CLEAR YELLOW URINE. BS WAS 180. CHRONIC WOUND ON L ASCENCIO THAT PT GOES TO WOUND CLINIC FOR.
--- NOTE | 2023-06-15 06:03 | NUR ---
PT LYING IN BED, EYES CLOSED, APPEARS TO BE RESTING. BREATHING IS EVEN, UNLABORED. NO APPARENT SIGNS OF DISTRESS. CALL LIGHT IS IN REACH. LAB CALLED WITH A CRITICAL VANCO TROUGH OF 22, CALLED PHARMACIST TO LET HER KNOW, ADRIANNE. WILL WAIT FOR FURTHER ORDERD FROM PHARMACY. NO OTHER CHANGES THIS SHIFT.
[2023-06-15 07:43] VITALS: BP 134/53
[2023-06-15 07:47] LABS: BASOPHILS ABSOLUTE AUTO 0.03 K/mm3 (0.00-0.23); BASOPHILS PERCENT AUTO 0 % (0-2); EOSINOPHILS ABSOLUTE AUTO 0.03 K/mm3 (0.00-0.68); EOSINOPHILS PERCENT AUTO 0 % (0-6); Hematocrit 33.6 % (33.0-51.0); Hemoglobin 11.1 g/dL (11.5-16.0); IMMATURE GRAN ABSOLUTE AUTO 0.05 K/mm3 (0.00-0.10); IMMATURE GRAN PERCENT AUTO 0 % (0-1); LYMPHOCYTES ABSOLUTE AUTO 1.51 K/mm3 (0.84-5.20); LYMPHOCYTES PERCENT AUTO 13 % (21-46); MONOCYTES ABSOLUTE AUTO 1.43 K/mm3 (0.16-1.47); MONOCYTES PERCENT AUTO 12 % (4-13); Mean Corpuscular HGB 28.9 pg (26.0-34.0); Mean Corpuscular Volume 88 fL (80-100); NEUTROPHILS ABSOLUTE AUTO 8.85 K/mm3 (1.96-9.15); NEUTROPHILS PERCENT AUTO 74 % (41-73); Platelet Count 491 K/mm3 (150-400); RDW Coefficient Variation 13.6 % (11.7-14.2); RDW Standard Deviation 43.8 fL (35.1-46.3); Red Blood Cell Count 3.84 M/mm3 (3.80-5.20)
[2023-06-15 08:12] LABS: Bun/Creatinine Ratio 17.1 (12.0-20.0); Calcium, Blood 8.6 mg/dL (8.5-10.1); Potassium, Blood 3.4 mmol/L (3.5-5.5)
[2023-06-15 10:15] VITALS: BP 139/72
[2023-06-15 14:31] VITALS: BP 168/75
[2023-06-15 19:33] VITALS: BP 125/56
--- NOTE | 2023-06-15 20:12 | NUR ---
SHIFT SUMMARY PATIENT WITH SOME PAIN THIS AM, MEDICATED PER EMAR, AFTER THAT, DENIES PAIN, UP TO EDGE OF BED WITH PT, UNABLE TO WORK ANY FURTHER. NO ACUTE EVENTS DURING SHIFT. BED IN LOW POSIITON, CALL LIGHT IN REACH. PATIENT USES CALL LIGHT APPROPRIATELY.
--- NOTE | 2023-06-16 04:39 | NUR ---
1900: ASSUMED CARE OF PT. REPORT RECEIVED FROM MIGUEL ÁNGEL RN. PT IS FOUND TO BE LAYING ON HER BACK IN BED WITH HOB ELEVATED. BREATHING IS EVEN AND UNLABORED, NO ACUTE DISTRESS NOTED. FAMILY A THE BEDSIDE. PT IS A/O, VSS. MEDICAIONS PROVIDED ORDERED, PT TOLERATED WELL. ASSISTED WITH BRIEF CHANGE, KORIN WICK CHANGE, KORIN CARE PERFORMED. PT TOLERATED WELL. ASSISTED IN BED FOR COMFORT. ALL NEEDS ADDRESSED DURING THE SHIFT. SAFETY MEASURES TAKEN. PT WAS ABLE TO SLEEP MOST OF THE NIGHT.
[2023-06-16 04:47] VITALS: BP 163/69
[2023-06-16 07:32] VITALS: BP 142/67
--- NOTE | 2023-06-16 09:51 | NUR ---
pt sitting up in a chair, a/ox4, pleasant and coopertive with care, follows commands well, denies pain at this time and had a great night with good rest, lungs are clear in upper han, dim in bases, on r/a, resp even and unlabored, no cough noted, hrr, 2+ edema noted to b/l le, ppp faint, cap refill <3 sec, vs stable, afebrile, piv site to rhand is clear and patent, btx4, abd flat soft nontender, voids via purwick, clear yellow urine, skin c/w/d, except the left ho has dressing in place without drainage, rosa barrientos, call light in reach. no needs at this time.
[2023-06-16 11:04] LABS: BASOPHILS ABSOLUTE AUTO 0.03 K/mm3 (0.00-0.23); BASOPHILS PERCENT AUTO 0 % (0-2); EOSINOPHILS PERCENT AUTO 1 % (0-6); Hematocrit 32.9 % (33.0-51.0); Hemoglobin 10.7 g/dL (11.5-16.0); IMMATURE GRAN ABSOLUTE AUTO 0.02 K/mm3 (0.00-0.10); IMMATURE GRAN PERCENT AUTO 0 % (0-1); LYMPHOCYTES ABSOLUTE AUTO 1.03 K/mm3 (0.84-5.20); LYMPHOCYTES PERCENT AUTO 11 % (21-46); MONOCYTES ABSOLUTE AUTO 0.65 K/mm3 (0.16-1.47); MONOCYTES PERCENT AUTO 7 % (4-13); Mean Corpuscular HGB 28.5 pg (26.0-34.0); Mean Corpuscular HGB Conc 32.5 g/dL (31.5-36.5); Mean Corpuscular Volume 88 fL (80-100); Mean Platelet Volume 9.6 fL (9.1-12.4); NEUTROPHILS ABSOLUTE AUTO 7.81 K/mm3 (1.96-9.15); NEUTROPHILS PERCENT AUTO 81 % (41-73); Platelet Count 577 K/mm3 (150-400); RDW Coefficient Variation 13.7 % (11.7-14.2); RDW Standard Deviation 43.8 fL (35.1-46.3); Red Blood Cell Count 3.76 M/mm3 (3.80-5.20); White Blood Cell Count 9.64 K/mm3 (4.00-11.30)
[2023-06-16 11:34] LABS: Calcium, Blood 8.8 mg/dL (8.5-10.1); Creatinine, Blood 1.18 mg/dL (0.40-1.00); Potassium, Blood 3.3 mmol/L (3.5-5.5)
[2023-06-16 11:45] LABS: Creatinine, Blood 1.16 mg/dL (0.40-1.00); Vancomycin, Trough 17.3 ug/mL (5.0-10.0)
[2023-06-16 14:16] VITALS: BP 135/66
[2023-06-16 18:14] VITALS: BP 143/84
--- NOTE | 2023-06-16 18:29 | NUR ---
pt has had an uneventful day, lots of family in this evening. she sat in a chair for a few hrs this shift. call light in reach.
[2023-06-16 20:06] VITALS: BP 118/55
[2023-06-17 03:08] VITALS: BP 144/73
--- NOTE | 2023-06-17 03:57 | NUR ---
1900: ASSUMED CARE OF PT, REPORT RECEIVED FROM DAY SHIFT RN. PT IS LAYING IN BED WITH HOB ELEVATED, FAMILY AT THE BEDSIDE. PT DISCUSSING D/C TO [facility] TOMORROW. DISCUSSED WOUND CARE PLAN/OPTIONS. PT IS A/O, BREATHING IS EVEN AND UNLABORED. NO ACUTE DISTRESS DURING THIS SHIFT. MEDICATIONS PROVIDED ORDERED. PT TOELRATED WELL WITH WATER. DRESSING TO LLE IS C/D/I. PIV STARTED LEAKING. NEW PIV OBTAINED IN THE LEFT HAND FOR CONTINUATION OF IV ABX. PT TOLERATED WELL. SLEPT MOST OF THE NIGHT WITH COMPLAINTS. ALL NEEDS ADDRESSED AND SAFETY MEASURES TAKEN.
[2023-06-17 08:07] VITALS: BP 135/70
[2023-06-17] MEDS ORDERED: ACET500 PO (11:51)
[2023-06-17] MEDS ORDERED: CELE100 PO (11:54)
[2023-06-17] MEDS ORDERED: COLCHICINE0.6 MG PO (11:55)
[2023-06-17] MEDS ORDERED: FAMO20 PO (11:56)
[2023-06-17] MEDS ORDERED: Isosorbide Mono30 MG PO (11:56)
[2023-06-17] MEDS ORDERED: Norco 5-325 Ta1 EACH PO (11:56)
[2023-06-17] MEDS ORDERED: ALEVE ARTHRITI100 GM TOP (11:57)
[2023-06-17] MEDS ORDERED: SENN187 PO (11:58)
[2023-06-17] MEDS ORDERED: MIRALAX17 GM PO (11:58)
[2023-06-17 12:43] LABS: SARS-Cov-2 (COVID-19) PCR, MMC NEGATIVE (NEGATIVE)
--- NOTE | 2023-06-17 15:39 | NUR ---
PT AWAKE FOR SHIFT REPORT. VERY PLEASANT AND CO-OP WITH CARE. ADMITTED FOR C/O R KNEE PAIN. PT IMPROVING AND ABLE TO MOVE IT IN BED AND UP TO EOB WITHOUT C/O PAIN. PT SITTING UP TO EOB HERSELF FOR MEALS. ABLE TO GET BACK INTO BED HERSELF WELL. DR LOPEZ IN TO SEE PT AND DISCUSS PLAN OF CARE. PT CLEAR FOR D/C TO [facility] BEFORE GOING BACK HOME. PT'S DAUGHTER HERE TO VISIT. D/C ORDERS PLACED. WAREHOUSE SHIFT SUPERVISOR ARRANGED FOR TX VIA W/C. PT ABLE TO DRESS HERSELF WITH SOME ASSIST FROM DAUGHTER. PT ABLE TO TX TO W/C WITH MOSTLY STAND PIVOT AND SM STEPS WITH R KNEE. DAUGHTER TAKING ALL PT BELONGINGS WITH HER. D/C PICTURE TAKEN OF VASCULAR ULCER TO E; SEE CHART. PER PICTURE AND DAUGHTER, WOUND MUCH IMPROVED. NEW DRESSING PLACED PRIOR TO D/C.
== END 2023-06-17 14:00 | disposition hospice, inpatient (51) | DRG 554 ==
LOC: ER 19:33 → MEDS 19:34 → ENPENDDIS 06-17 07:57 → MEDS 06-17 14:00
PROVIDERS: Internal Medicine; Student in an Organized Health Care Education/Training Program; ADMIT Internal Medicine
PROC: 0S9C3ZZ Drainage of Right Knee Joint, Percutaneous Approach (ICD-10-PCS; principal; 2023-06-13)
DX: M11.262 Other chondrocalcinosis, left knee (principal); I48.0 Paroxysmal atrial fibrillation; I10 Essential (primary) hypertension; E11.9 Type 2 diabetes mellitus without complications; E03.9 Hypothyroidism, unspecified; Z86.73 Personal history of transient ischemic attack (TIA), and cerebral infarction without residual deficits; Z85.828 Personal history of other malignant neoplasm of skin; Z79.01 Long term (current) use of anticoagulants; Z79.84 Long term (current) use of oral hypoglycemic drugs
CPT/HCPCS: 20610; 36415; 73562-RT; 80048; 80053; 80202; 82565; 82947; 84550; 85025; 85651; 86140; 87070; 87075; 87205; 89051; 89060; 96365; 96366; 96368; 96375; 96375-59; 97110; 97161; 97530; 99284-25; A9270; C9113; G0008; G0378; J0360; J0696; J3010; J3370; J7050; Q2036; U0002

== ENCOUNTER 2023-07-10 13:37 | Emergency (ER) | payer MEDICARE, OTHER ==
[~2023-07-10] VITALS: Ht 165.1 cm; Wt 89.8 kg
[~2023-07-10 13:37] MED LIST changes: +ACET500 PO; +ALEVE ARTHRITI100 GM TOP; +Bisoprolol Fumar5 MG PO; +CELE100 PO; +COLCHICINE0.6 MG PO; +ELIQUIS5 M2 PO; +FAMO20 PO; +HYDRA50 PO; +Isosorbide Mono30 MG PO; +MIRALAX17 GM PO; +Norco 5-325 Ta1 EACH PO; +SENN187 PO
[2023-07-10 14:48] LABS: BASOPHILS ABSOLUTE AUTO 0.03 K/mm3 (0.00-0.23); BASOPHILS PERCENT AUTO 1 % (0-2); EOSINOPHILS ABSOLUTE AUTO 0.07 K/mm3 (0.00-0.68); EOSINOPHILS PERCENT AUTO 1 % (0-6); Hematocrit 37.9 % (33.0-51.0); IMMATURE GRAN ABSOLUTE AUTO 0.02 K/mm3 (0.00-0.10); IMMATURE GRAN PERCENT AUTO 0 % (0-1); LYMPHOCYTES ABSOLUTE AUTO 1.66 K/mm3 (0.84-5.20); LYMPHOCYTES PERCENT AUTO 28 % (21-46); MONOCYTES ABSOLUTE AUTO 0.46 K/mm3 (0.16-1.47); MONOCYTES PERCENT AUTO 8 % (4-13); Mean Corpuscular HGB 28.9 pg (26.0-34.0); Mean Corpuscular HGB Conc 31.7 g/dL (31.5-36.5); Mean Corpuscular Volume 91 fL (80-100); Mean Platelet Volume 9.9 fL (9.1-12.4); NEUTROPHILS ABSOLUTE AUTO 3.75 K/mm3 (1.96-9.15); NEUTROPHILS PERCENT AUTO 63 % (41-73); Platelet Count 469 K/mm3 (150-400); RDW Coefficient Variation 15.1 % (11.7-14.2); RDW Standard Deviation 50.1 fL (35.1-46.3); Red Blood Cell Count 4.15 M/mm3 (3.80-5.20); White Blood Cell Count 5.99 K/mm3 (4.00-11.30)
[2023-07-10] MEDS ORDERED: ALLO100 PO (15:01)
[2023-07-10 15:06] LABS: Source, Urine Straight Cath
[2023-07-10 15:09] LABS: Appearance, Urine Clear (Clear); Bilirubin, Urine Neg (Neg); Blood, Urine Neg (Neg); Color, Urine Yellow (P-Yellow); Glucose Qualitative, Urine Neg (Neg); Ketones, Urine Neg (Neg); Leukocyte Esterase, Urine 2+ (Neg); Nitrite, Urine Neg (Neg); Protein, Urine 2+ (Neg); Urobilinogen, Urine NORM (Normal)
[2023-07-10 15:13] LABS: Albumin, Blood 3.5 g/dL (3.4-5.0); Albumin/Globulin Ratio 0.7 (0.8-1.8); Bilirubin, Total 0.3 mg/dL (0.1-1.0); Bun/Creatinine Ratio 34.1 (12.0-20.0); Calcium, Blood 9.6 mg/dL (8.5-10.1); Creatinine, Blood 2.96 mg/dL (0.40-1.00); Potassium, Blood 5.9 mmol/L (3.5-5.5); Total Protein, Blood 8.5 g/dL (6.4-8.2)
[2023-07-10 15:23] LABS: Red Blood Cells, Urine 0-2 /hpf (0-2); White Blood Cells, Urine 25-50 /hpf (0-5)
[2023-07-10 15:24] LABS: Bacteria Many /hpf; Squamous Epithelial Cells Few /hpf (Few); Transitional Epithelial Cells Few /hpf (0-Rare)
[2023-07-10 16:06] LABS: Influenza A, PCR NEGATIVE (NEGATIVE); Influenza B, PCR NEGATIVE (NEGATIVE); Resp Syncytial Virus, PCR NEGATIVE (NEGATIVE)
[2023-07-10 16:15] LABS: SARS-Cov-2 (COVID-19) PCR, MMC POSITIVE (NEGATIVE)
[2023-07-10] MEDS ORDERED: CEPH500 PO (16:39)
[2023-07-10 17:40] VITALS: BP 130/54
== END 2023-07-10 17:47 | disposition home or self-care (01) ==
LOC: ER 13:37
PROVIDERS: Physician Assistant; Student in an Organized Health Care Education/Training Program
DX: U07.1 COVID-19 (principal); N39.0 Urinary tract infection, site not specified; I10 Essential (primary) hypertension; E11.9 Type 2 diabetes mellitus without complications; Z79.01 Long term (current) use of anticoagulants; Z79.890 Hormone replacement therapy; Z79.899 Other long term (current) drug therapy
CPT/HCPCS: 0241U; 80053; 81001; 83735; 85025; 87077; 87086; 87186; 93005; 93010; 96365; 96374; 99285-25; J0696; J7030

== ENCOUNTER 2023-07-16 11:19 | Inpatient (IN) | payer MEDICARE, OTHER ==
[~2023-07-16] VITALS: Ht 167.6 cm; Wt 80.9 kg
[~2023-07-16 11:19] MED LIST changes: +ALLO100 PO; +CEPH500 PO
[2023-07-16 12:25] LABS: BASOPHILS ABSOLUTE AUTO 0.04 K/mm3 (0.00-0.23); BASOPHILS PERCENT AUTO 0 % (0-2); EOSINOPHILS ABSOLUTE AUTO 0.05 K/mm3 (0.00-0.68); EOSINOPHILS PERCENT AUTO 1 % (0-6); Hematocrit 39.4 % (33.0-51.0); Hemoglobin 12.5 g/dL (11.5-16.0); IMMATURE GRAN ABSOLUTE AUTO 0.04 K/mm3 (0.00-0.10); IMMATURE GRAN PERCENT AUTO 0 % (0-1); LYMPHOCYTES PERCENT AUTO 12 % (21-46); MONOCYTES ABSOLUTE AUTO 0.65 K/mm3 (0.16-1.47); MONOCYTES PERCENT AUTO 7 % (4-13); Mean Corpuscular HGB 28.8 pg (26.0-34.0); Mean Corpuscular HGB Conc 31.7 g/dL (31.5-36.5); Mean Corpuscular Volume 91 fL (80-100); Mean Platelet Volume 10.2 fL (9.1-12.4); NEUTROPHILS PERCENT AUTO 80 % (41-73); Platelet Count 577 K/mm3 (150-400); RDW Coefficient Variation 16.2 % (11.7-14.2); RDW Standard Deviation 53.5 fL (35.1-46.3); Red Blood Cell Count 4.34 M/mm3 (3.80-5.20); White Blood Cell Count 9.48 K/mm3 (4.00-11.30)
[2023-07-16 13:01] LABS: Albumin, Blood 3.8 g/dL (3.4-5.0); Albumin/Globulin Ratio 0.7 (0.8-1.8); Bilirubin, Total 0.3 mg/dL (0.1-1.0); Calcium, Blood 10.4 mg/dL (8.5-10.1); Creatinine, Blood 4.63 mg/dL (0.40-1.00); Globulin, Blood 5.3 g/dL (2.2-4.0); Potassium, Blood 6.5 mmol/L (3.5-5.5); Total Protein, Blood 9.1 g/dL (6.4-8.2)
[2023-07-16 18:18] VITALS: BP 114/61
[2023-07-17 06:05] VITALS: BP 146/60
[2023-07-17 06:30] LABS: BASOPHILS ABSOLUTE AUTO 0.03 K/mm3 (0.00-0.23); BASOPHILS PERCENT AUTO 0 % (0-2); EOSINOPHILS ABSOLUTE AUTO 0.13 K/mm3 (0.00-0.68); EOSINOPHILS PERCENT AUTO 2 % (0-6); Hematocrit 32.4 % (33.0-51.0); Hemoglobin 10.6 g/dL (11.5-16.0); IMMATURE GRAN ABSOLUTE AUTO 0.02 K/mm3 (0.00-0.10); IMMATURE GRAN PERCENT AUTO 0 % (0-1); LYMPHOCYTES ABSOLUTE AUTO 0.97 K/mm3 (0.84-5.20); LYMPHOCYTES PERCENT AUTO 15 % (21-46); MONOCYTES ABSOLUTE AUTO 0.61 K/mm3 (0.16-1.47); MONOCYTES PERCENT AUTO 9 % (4-13); Mean Corpuscular HGB 28.6 pg (26.0-34.0); Mean Corpuscular HGB Conc 32.7 g/dL (31.5-36.5); Mean Corpuscular Volume 87 fL (80-100); NEUTROPHILS ABSOLUTE AUTO 4.91 K/mm3 (1.96-9.15); NEUTROPHILS PERCENT AUTO 74 % (41-73); Platelet Count 418 K/mm3 (150-400); RDW Coefficient Variation 15.8 % (11.7-14.2); RDW Standard Deviation 49.9 fL (35.1-46.3); Red Blood Cell Count 3.71 M/mm3 (3.80-5.20); White Blood Cell Count 6.67 K/mm3 (4.00-11.30)
[2023-07-17 07:06] LABS: Albumin, Blood 3.1 g/dL (3.4-5.0); Albumin/Globulin Ratio 0.7 (0.8-1.8); Bilirubin, Total 0.3 mg/dL (0.1-1.0); Bun/Creatinine Ratio 53.3 (12.0-20.0); Calcium, Blood 9.6 mg/dL (8.5-10.1); Creatinine, Blood 2.46 mg/dL (0.40-1.00); Globulin, Blood 4.3 g/dL (2.2-4.0); Magnesium, Blood 1.9 mg/dL (1.6-2.4); Phosphorus, Blood 3.9 mg/dL (2.5-4.9); Potassium, Blood 4.4 mmol/L (3.5-5.5); Thyroid Stimulating Hormone 0.106 uIU/mL (0.360-4.800); Total Protein, Blood 7.4 g/dL (6.4-8.2); Uric Acid, Blood 7.7 mg/dL (2.6-6.0)
--- NOTE | 2023-07-17 07:55 | NUR ---
SHIFT SUMMERY. PT RESTING IN BED, PT ALERT AND ORIENTED TO PERSON AND SELF. PT WAS BLADDER SCANED AND HAD 579 IN BLADDER. GOT ORDER FOR SHEN AND PLACED 16 FR CATH WITH OUT ANY DIFFICULTY. GOT 500 ML IMEDIATE RETURN. PT HAS SEEMED TO REST WELL DURING THE NIGHT. CALL LIGHT IN REACH.
[2023-07-17 08:06] VITALS: BP 142/70
[2023-07-17 12:39] LABS: SARS-Cov-2 (COVID-19) PCR, MMC POSITIVE (NEGATIVE)
[2023-07-17 12:55] LABS: Albumin/Globulin Ratio 0.7 (0.8-1.8); Bilirubin, Total 0.3 mg/dL (0.1-1.0); Bun/Creatinine Ratio 56.7 (12.0-20.0); Calcium, Blood 9.3 mg/dL (8.5-10.1); Creatinine, Blood 2.01 mg/dL (0.40-1.00); Globulin, Blood 4.3 g/dL (2.2-4.0); Potassium, Blood 4.2 mmol/L (3.5-5.5); Total Protein, Blood 7.3 g/dL (6.4-8.2)
[2023-07-17 15:27] VITALS: BP 127/76
--- NOTE | 2023-07-17 18:29 | NUR ---
SHIFT SUMMARY Pt remains pleasantly confused to self this shift. Denies pain. VSS. Labs trending right direction. Rosa intact. Frequent turns for comfort and skin integrity. Decreased appetite despite dentures in place. NaBicarb infusing 75/hr this shift.
[2023-07-17 20:13] VITALS: BP 159/77
[2023-07-18 05:26] VITALS: BP 158/70
[2023-07-18 05:46] LABS: Hematocrit 32.7 % (33.0-51.0); Hemoglobin 10.8 g/dL (11.5-16.0)
--- NOTE | 2023-07-18 06:14 | NUR ---
0400 AGREE WITH JUAN GAMINO RN'S ASSESSMENT. WILL TAKE OVER FULL CARE OF PT AT THIS TIME. PT IS CURRENTLY LYING IN BED, EYES CLOSED, APPEARS TO BE RESTING. BREATHING IS EVEN, UNLABORD. NO APPARENT SIGNS OF DISTRESS. CALL LIGHT IS IN REACH.
--- NOTE | 2023-07-18 06:15 | NUR ---
PT LYING IN BED, EYES CLOSED, WAKES EASILY TO VERBAL STIMULI. NO APPARENT SIGNS OF DISTRESS. CALL LIGHT IS IN REACH. NO OTHER CHANGES THIS SHIFT.
--- NOTE | 2023-07-18 06:16 | NUR ---
PT IS AAO TO SELF ONLY. ON RA. SHEN WITH SLIGHTLY DARK YELLOW CLEAR URINE. BAS WAS 142.
[2023-07-18 06:18] LABS: Anion Gap 5 mmol/L (6-16); Blood Urea Nitrogen 90 mg/dL (8-24); Bun/Creatinine Ratio 59.6 (12.0-20.0); CO2, Blood 24 mmol/L (21-32); Calcium, Blood 9.5 mg/dL (8.5-10.1); Chloride, Blood 122 mmol/L (98-108); Creatinine, Blood 1.51 mg/dL (0.40-1.00); Glomerular Filtration Rate 34 (60-); Glucose, Blood 132 mg/dL (70-99); Magnesium, Blood 1.7 mg/dL (1.6-2.4); Phosphorus, Blood 2.9 mg/dL (2.5-4.9); Potassium, Blood 3.7 mmol/L (3.5-5.5); Sodium, Blood 151 mmol/L (136-145)
[2023-07-18 07:24] VITALS: BP 151/74
--- NOTE | 2023-07-18 16:00 | NUR ---
Upon receiving a referral for spiritual care, I visited the patient. She is sleeping when I eneter the pt's rm. She is groggy but tells me that she has good family support and would love a prayer said for her, which I gladly supply. Patient voices much appreciation. She showed signs of an elevated mood. I will continue to remain available to patient and family.
[2023-07-18 16:15] VITALS: BP 169/73
--- NOTE | 2023-07-18 17:54 | NUR ---
SHIFT SUMMARY A&OX1, SELF. COOPERATIVE WITH CARE. DENIES ANY CP/PRESSURE, HEADACHE, OR DIZZINESS. SOB WITH EXERTION PER PT REPORT. NO COMPLAINTS OF PAIN THIS SHIFT. LACK OF APPETITE NOTED. DIETARY SPOKE WITH PT'S DAUGHTER AND SHE ORDERED ENSURES FOR PATIENT. SODIUM BICARB AND D5 RUNNING CONCURRENTLY AT 75ML/HR AT THIS TIME. SHEN CATHETER REMOVED AT 1500. ELECTROMECHANICAL INSPECTOR'S CHANGED PATIENT AT 1745 AND REPORTED PATIENT DIDN'T HAVE ANY OUTPUT. BLADDER SCAN REVEALED 185. ENCOURAGED PT TO TRY TO PEE AND SHE WAS ABLE TO PEE AN UNMEASURABLE AMOUNT IN HER BEDPAN/ATTENDS. PT AND OT WORKED WITH PATIENT AND REPORTED SHE HAD DIFFUCULTY MOVING TO THE SIDE OF THE BED, BUT DID STAND UP BY HERSELF. NO ACUTE EVENTS THIS SHIFT. PATIENT CURRENTLY EATING DINNER WITH DAUGHTER AT BEDSIDE. BED IN THE LOWEST POSITION. CALL LIGHT WITHIN REACH.
[2023-07-18 19:48] VITALS: BP 165/75
--- NOTE | 2023-07-19 03:44 | NUR ---
PT A&OX1-2 PLEASANT AND COOPERATIE WITH CARE, PT TOOK MEDICATION WHOLE WITH WATER, PO INTAKE DECREASED REFUSED NUTRUITONAL SUPPORT BUT DRINK HALF APPLE JUICE, PT HAD INCONTX1 WEARS ATTEND, CALLS APPROPERIATELY CALL STEVENS WITHIN REACH. IV [facility] SODIUM BICARB CONTINUE D5@75ML/HR. LABS WITHIN NORMAL RANGE. PT IS RESTING WELL NONOBSTRUCTIVE SNORE, WAKES EASILY RESPONDS APPROPERAIELY.
[2023-07-19 04:33] VITALS: BP 167/67
[2023-07-19 06:15] LABS: Hematocrit 29.6 % (33.0-51.0); Hemoglobin 9.7 g/dL (11.5-16.0)
[2023-07-19 06:49] LABS: Albumin, Blood 2.6 g/dL (3.4-5.0); Anion Gap 5 mmol/L (6-16); Blood Urea Nitrogen 51 mg/dL (8-24); Bun/Creatinine Ratio 45.5 (12.0-20.0); CO2, Blood 28 mmol/L (21-32); Calcium, Blood 8.8 mg/dL (8.5-10.1); Chloride, Blood 114 mmol/L (98-108); Creatinine, Blood 1.12 mg/dL (0.40-1.00); Glomerular Filtration Rate 49 (60-); Glucose, Blood 142 mg/dL (70-99); Magnesium, Blood 1.6 mg/dL (1.6-2.4); Phosphorus, Blood 2.2 mg/dL (2.5-4.9); Potassium, Blood 3.2 mmol/L (3.5-5.5); Sodium, Blood 147 mmol/L (136-145)
--- NOTE | 2023-07-19 06:51 | NUR ---
ASSUMED CARE OF PT AT 0400. NO CHANGES NOTED. AM MEDS AND PRN TYLENOL RECIEVED PER EMAR. IVF INFUSING W/O ISSUE AT PRESENT. BARRY AND REPORT TO DAY KIM.
[2023-07-19 07:36] VITALS: BP 168/68
--- NOTE | 2023-07-19 16:11 | NUR ---
SHIFT SUMMARY ALERT AND ORIENTED TO SELF. COOPERATIVE WITH CARE. LETHARGIC T/O SHIFT. DENIES ANY CP/PRESSURE, HEADACHE, OR DIZZINESS. SLIGHT SOB PER PT REPORT. NEEDS FREQUENT REMINDERS TO URINATE. HEAVY 2 PERSON ASSIST. NO COMPLAINTS OF PAIN. NO ACUTE CHANGES THIS SHIFT. JUST COMPLETED A FULL BATH AND BED CHANGE. PUREWICK PLACED. D5 RUNNING AT 50MLS/HR. CURRENTLY WATCHING TV. BED IN LOWEST POSITION. CALL LIGHT WITHIN REACH. PLAN FOR DISCHARGE TO SNF OR [facility] TOMORROW.
[2023-07-19 16:36] VITALS: BP 172/81
[2023-07-19 19:33] VITALS: BP 190/76
[2023-07-20 01:05] VITALS: BP 156/85
[2023-07-20 03:34] VITALS: BP 157/69
--- NOTE | 2023-07-20 03:45 | NUR ---
PT A&OX1-2 DAUGHTER AT BEDSIDE, PT REFUSING NUTRITIONAL INTAKE MAKES GAP SOUNDS REPORTS DIFFICULTY SWALLOWING, PT IV IS POSITIONAL RECEIVING D5@50 ML/HR. PT SWOLLOWED MEDICATION WITH DARLIN W/O JOANUTJURGEN. LS ARE DIMINSHED AT BASES, POX 98%, PT HR 66 BPM APICALLY, PT IS ON BEDREST HAS PURWIC IN PLACE VOIDING AGUSTÍN URINE, BED LOWERED, CALL LIGHT IN REACH CALLS APPROPERIATELY WILL CONTINUE TO MONITOR
--- NOTE | 2023-07-20 05:45 | NUR ---
PT UP TO BRP WITH A WALKER/SBA - PT HAS AUDIBLE WHEEZING WITH EXERTION. PT BACK TO BED, PLACED IN TRIPOD POSITION - SATS WNL DURING THIS TIME. RT CALLED FOR BREATHING TREATMENT.
--- NOTE | 2023-07-20 06:01 | NUR ---
PT REPORTS SHE IS "FEELING BETTER." ASKING TO HAVE HOB LOWERED, BECAUSE SHE IS "TIRED AND WOULD LIKE TO TAKE A NAP." REMINDED PT TO CALL FOR ASSIST OUT OF BED, BED ALARM PLACED ON FOR SAFETY. CALL LIGHT AND FLUIDS WITHIN REACH.
--- NOTE | 2023-07-20 06:11 | NUR ---
NO ACUTE CHANGES SINCE KIM CHOI LEFT LAST NOC AT APPX 0330. WILL CONTINUE TO MONITOR PT UNTIL AM SHIFT CHANGE.
[2023-07-20 06:25] LABS: Hematocrit 29.3 % (33.0-51.0); Hemoglobin 9.7 g/dL (11.5-16.0)
[2023-07-20 06:49] LABS: Magnesium, Blood 1.4 mg/dL (1.6-2.4)
[2023-07-20 06:50] LABS: Albumin, Blood 2.4 g/dL (3.4-5.0); Anion Gap 7 mmol/L (6-16); Blood Urea Nitrogen 30 mg/dL (8-24); Bun/Creatinine Ratio 32.4 (12.0-20.0); CO2, Blood 26 mmol/L (21-32); Calcium, Blood 8.8 mg/dL (8.5-10.1); Chloride, Blood 111 mmol/L (98-108); Creatinine, Blood 0.93 mg/dL (0.40-1.00); Glomerular Filtration Rate 61 (60-); Glucose, Blood 133 mg/dL (70-99); Phosphorus, Blood 2.5 mg/dL (2.5-4.9); Potassium, Blood 3.6 mmol/L (3.5-5.5); Sodium, Blood 144 mmol/L (136-145)
[2023-07-20 07:02] VITALS: BP 136/68
[2023-07-20 14:51] VITALS: BP 165/75
== END 2023-07-20 17:08 | DRG 682 ==
LOC: ER 11:19 → MEDS 15:28 → ENPENDDIS 07-20 11:15 → MEDS 07-20 17:08
PROVIDERS: Hospitalist; Internal Medicine Nephrology; Student in an Organized Health Care Education/Training Program; ADMIT Internal Medicine
DX: N17.9 Acute kidney failure, unspecified (principal); G92.8 Other toxic encephalopathy; E87.20 Acidosis, unspecified; N39.0 Urinary tract infection, site not specified; E87.0 Hyperosmolality and hypernatremia; E87.5 Hyperkalemia; E83.52 Hypercalcemia; I12.9 Hypertensive chronic kidney disease with stage 1 through stage 4 chronic kidney disease, or unspecified chronic kidney disease; E11.22 Type 2 diabetes mellitus with diabetic chronic kidney disease; E03.9 Hypothyroidism, unspecified; N18.9 Chronic kidney disease, unspecified; D63.1 Anemia in chronic kidney disease; B96.20 Unspecified Escherichia coli [E. coli] as the cause of diseases classified elsewhere; E86.9 Volume depletion, unspecified; I95.89 Other hypotension; I48.0 Paroxysmal atrial fibrillation; R63.0 Anorexia; E87.6 Hypokalemia; Z79.01 Long term (current) use of anticoagulants; Z86.73 Personal history of transient ischemic attack (TIA), and cerebral infarction without residual deficits; Z79.890 Hormone replacement therapy; Z86.16 Personal history of COVID-19; Z68.26 Body mass index [BMI] 26.0-26.9, adult
CPT/HCPCS: 36415; 71046; 76770; 80053; 80069; 82947; 83735; 84100; 84132; 84295; 84443; 84550; 85014; 85018; 85025; 93005; 93010; 94760; 96365; 96375; 97110; 97162; 97165; 97530; 97535; 99285-25; A9270; J0696; J1644; J1815; J3475; J3480; J7030; J7060; J7070; Q2036; U0002

== ENCOUNTER → 2023-10-12 | Outpatient (CLI) | payer MEDICARE, OTHER ==
[~2023-10-12] MED LIST changes: +GABA100 PO; +MAGNESIUM250 MG PO; +MIRTAZAPINE7.5 M1 PO; +VITAMIN B121000 MCG PO; +VITAMIN D325 MC3 PO
[2023-10-14 01:50] LABS: Creatinine Urine 39.5 mg/dL (27.00-270.00); Microalbumin, Urine Quant. 80.6 mg/L (0.000-20.000); Protein, Urine Quantitative 18.1 mg/dL (0.0-11.9)
== END | disposition home or self-care (01) ==
LOC: LAB 06:00 → LAB SHORT 06:00
PROVIDERS: Internal Medicine Nephrology
DX: N18.30 Chronic kidney disease, stage 3 unspecified (principal); D63.1 Anemia in chronic kidney disease; N25.81 Secondary hyperparathyroidism of renal origin; E55.9 Vitamin D deficiency, unspecified; E78.00 Pure hypercholesterolemia, unspecified; R76.9 Abnormal immunological finding in serum, unspecified; R94.5 Abnormal results of liver function studies; R94.6 Abnormal results of thyroid function studies; D51.8 Other vitamin B12 deficiency anemias; D52.8 Other folate deficiency anemias; D50.9 Iron deficiency anemia, unspecified
CPT/HCPCS: 81050; 82043; 82570; 84156

== ENCOUNTER → 2024-01-26 | Outpatient (CLI) | payer MEDICARE, OTHER ==
[~2024-01-26] MED LIST changes: +AMOX875 PO; +CEFP200 PO; +LEVSOD75 PO; +LISI20 PO
[2024-01-26 17:46] LABS: Source, Urine Clean Catch
[2024-01-26 18:49] LABS: Appearance, Urine Hazy (Clear); Bilirubin, Urine Neg (Neg); Blood, Urine Neg (Neg); Color, Urine Yellow (P-Yellow); Glucose Qualitative, Urine Neg (Neg); Ketones, Urine Neg (Neg); Leukocyte Esterase, Urine 3+ (Neg); Nitrite, Urine Neg (Neg); Protein, Urine 1+ (Neg); Specific Gravity, Urine 1.015 (1.003-1.022); Urobilinogen, Urine NORM (Normal)
[2024-01-26 19:05] LABS: Bacteria Few /hpf; Red Blood Cells, Urine 0-2 /hpf (0-2); Squamous Epithelial Cells Few /hpf (Few); Yeast/Fungi Urine Few /hpf
[2024-01-26 19:06] LABS: Hyaline Casts 0-2 /lpf (0-2)
== END | disposition home or self-care (01) ==
LOC: LAB SHORT 17:44 → LAB 17:44
PROVIDERS: Physician Assistant
DX: N39.0 Urinary tract infection, site not specified (principal)
CPT/HCPCS: 81001; 87077; 87086; 87186

== ENCOUNTER → 2024-04-25 | Outpatient (CLI) | payer MEDICARE, OTHER ==
[2024-04-25 16:36] LABS: Source, Urine Clean Catch
[2024-04-25 17:12] LABS: Bilirubin, Urine Neg (Neg); Blood, Urine Neg (Neg); Glucose Qualitative, Urine Neg (Neg); Ketones, Urine Neg (Neg); Leukocyte Esterase, Urine 3+ (Neg); Nitrite, Urine Neg (Neg); Protein, Urine Neg (Neg); Urobilinogen, Urine NORM (Normal)
[2024-04-25 17:23] LABS: Appearance, Urine Hazy (Clear); Color, Urine Pale Yellow (P-Yellow)
[2024-04-25 17:24] LABS: Bacteria Many /hpf; Hyaline Casts 0-2 /lpf (0-2); Red Blood Cells, Urine Not Seen /hpf (0-2); Squamous Epithelial Cells Few /hpf (Few); Yeast/Fungi Urine Mod /hpf
== END ==
LOC: LAB SHORT 16:35 → LAB 16:35
PROVIDERS: Physician Assistant
DX: N39.0 Urinary tract infection, site not specified (principal)
CPT/HCPCS: 81001; 87077; 87086; 87186

== ENCOUNTER 2024-06-08 13:21 | Inpatient (IN) | payer MEDICARE, OTHER ==
[~2024-06-08] VITALS: Ht 165.1 cm; Wt 71.6 kg
[2024-06-08 13:49] LABS: BASOPHILS ABSOLUTE AUTO 0.03 K/mm3 (0.00-0.23); BASOPHILS PERCENT AUTO 1 % (0-2); EOSINOPHILS ABSOLUTE AUTO 0.22 K/mm3 (0.00-0.68); EOSINOPHILS PERCENT AUTO 4 % (0-6); Hemoglobin 11.8 g/dL (11.5-16.0); IMMATURE GRAN ABSOLUTE AUTO 0.01 K/mm3 (0.00-0.10); IMMATURE GRAN PERCENT AUTO 0 % (0-1); LYMPHOCYTES ABSOLUTE AUTO 1.52 K/mm3 (0.84-5.20); LYMPHOCYTES PERCENT AUTO 26 % (21-46); MONOCYTES ABSOLUTE AUTO 0.43 K/mm3 (0.16-1.47); MONOCYTES PERCENT AUTO 7 % (4-13); Mean Corpuscular HGB 27.5 pg (26.0-34.0); Mean Corpuscular HGB Conc 31.9 g/dL (31.5-36.5); Mean Corpuscular Volume 86 fL (80-100); Mean Platelet Volume 9.5 fL (9.1-12.4); NEUTROPHILS ABSOLUTE AUTO 3.64 K/mm3 (1.96-9.15); NEUTROPHILS PERCENT AUTO 62 % (41-73); Platelet Count 543 K/mm3 (150-400); RDW Coefficient Variation 19.3 % (11.7-14.2); RDW Standard Deviation 59.4 fL (35.1-46.3); Red Blood Cell Count 4.29 M/mm3 (3.80-5.20); White Blood Cell Count 5.85 K/mm3 (4.00-11.30)
[2024-06-08 13:54] LABS: Source, Urine Straight Cath
[2024-06-08 14:01] LABS: Appearance, Urine Hazy (Clear); Bilirubin, Urine Neg (Neg); Blood, Urine Neg (Neg); Color, Urine Yellow (P-Yellow); Glucose Qualitative, Urine Neg (Neg); Ketones, Urine Neg (Neg); Leukocyte Esterase, Urine Neg (Neg); Nitrite, Urine Neg (Neg); Protein, Urine 1+ (Neg); Specific Gravity, Urine 1.015 (1.003-1.022); Urobilinogen, Urine NORM (Normal)
[2024-06-08 14:13] LABS: Albumin, Blood 3.5 g/dL (3.4-5.0); Albumin/Globulin Ratio 0.7 (0.8-1.8); Bilirubin, Total 0.3 mg/dL (0.1-1.0); Bun/Creatinine Ratio 24.9 (12.0-20.0); Creatinine, Blood 2.37 mg/dL (0.40-1.00); Globulin, Blood 4.9 g/dL (2.2-4.0); Potassium, Blood 4.8 mmol/L (3.5-5.5); Total Protein, Blood 8.4 g/dL (6.4-8.2)
[2024-06-08 14:19] LABS: Mucus Light (0-Heavy); Squamous Epithelial Cells Mod /hpf (Few); Transitional Epithelial Cells Few /hpf (0-Rare)
[2024-06-08 14:20] LABS: Amorphous Light (0-Heavy); Bacteria Mod /hpf; Hyaline Casts 0-2 /lpf (0-2); Red Blood Cells, Urine 0-2 /hpf (0-2); White Blood Cells, Urine 0-2 /hpf (0-5)
[2024-06-08] MEDS ORDERED: Lactated Ringer's 1,000 ML IV ONE (14:30)
[2024-06-08] MEDS ORDERED: NS 1,000 ML IV SCH (17:00)
[2024-06-08] MEDS ORDERED: FLU VACC TS2024-25(6MOS UP)/PF 45 MCG/0.5 ML SYRINGE IM SCH (17:05)
[2024-06-08] MEDS ORDERED: CefTRIAXone Sodium 1,000 MG in NS 100 ML IV SCH (18:00)
[2024-06-08 19:52] VITALS: BP 158/88
--- NOTE | 2024-06-08 20:59 | NUR ---
PATIENT IS A NEW ADMIT ON DAY SHIFT JUST PRIOR TO SHIFT CHANGE. AXOX 2-3 WITH CONFUSION, NO YEAR OR PLACE. BEDREST AND ON ROOM AIR. DAUGHTER PRESENT ON ADMIT. LR INFUSING FROM THE ED. REPORTS LIVES AT [facility]. DRESSING TO LEFT ASCENCIO FROM FACILITY FOR SKIN TEAR AND SMALL SORE ON COCCYX. DENIES CHEST PAIN, SOB, AND N/V. WATCHING TV AFTER ASSESSMENT. NS STARTED @ 100mL/HR AND IV ABX INFUSED. CALL LIGHT IN REACH AND BED ALARM. WCTM.
[2024-06-08] MEDS ORDERED: Lactobacil 2-S.Thermo-Bifido 1 1 Cap PO SCH (21:00)
[2024-06-09 04:59] LABS: BASOPHILS ABSOLUTE AUTO 0.03 K/mm3 (0.00-0.23); BASOPHILS PERCENT AUTO 1 % (0-2); EOSINOPHILS ABSOLUTE AUTO 0.36 K/mm3 (0.00-0.68); EOSINOPHILS PERCENT AUTO 6 % (0-6); Hematocrit 33.3 % (33.0-51.0); Hemoglobin 10.7 g/dL (11.5-16.0); IMMATURE GRAN ABSOLUTE AUTO 0.01 K/mm3 (0.00-0.10); IMMATURE GRAN PERCENT AUTO 0 % (0-1); LYMPHOCYTES ABSOLUTE AUTO 1.61 K/mm3 (0.84-5.20); LYMPHOCYTES PERCENT AUTO 29 % (21-46); MONOCYTES ABSOLUTE AUTO 0.61 K/mm3 (0.16-1.47); MONOCYTES PERCENT AUTO 11 % (4-13); Mean Corpuscular HGB 27.3 pg (26.0-34.0); Mean Corpuscular HGB Conc 32.1 g/dL (31.5-36.5); Mean Corpuscular Volume 85 fL (80-100); Mean Platelet Volume 9.1 fL (9.1-12.4); NEUTROPHILS PERCENT AUTO 53 % (41-73); Platelet Count 450 K/mm3 (150-400); RDW Standard Deviation 58.3 fL (35.1-46.3); Red Blood Cell Count 3.92 M/mm3 (3.80-5.20); White Blood Cell Count 5.62 K/mm3 (4.00-11.30)
--- NOTE | 2024-06-09 05:01 | NUR ---
SHIFT SUMMARY PATIENT HAD NO ACUTE CHANGES SINCE ADMIT. AXOX 2-3 WITH CONFUSION, NO YEAR OR FACILITY BUT KNEW NEXT PRESIDENT. BEDREST REPORTING WEAK THIS LAST WEEK. PIV INTACT. NS INFUSING @ 100 mL/HR. IV ABX INFUSED. DENIES CHEST PAIN, SOB, AND N/V. VSS/AFEBRILE. ANXIOUS EARLIER IN SHIFT AND LATER ABLE TO SLEEP. CALL LIGHT IN REACH. BED IN LOWEST POSITION AND ALARM ACTIVATED WITH NO EVENTS. WILL CONTINUE TO MONITOR UNTIL DAY SHIFT NURSE ASSUMES CARE.
[2024-06-09 05:19] LABS: Bun/Creatinine Ratio 25.7 (12.0-20.0); Calcium, Blood 10.1 mg/dL (8.5-10.1); Creatinine, Blood 1.83 mg/dL (0.40-1.00); Potassium, Blood 4.2 mmol/L (3.5-5.5)
[2024-06-09 05:33] VITALS: BP 148/85
[2024-06-09] MEDS ORDERED: Insulin Regular 100 UNIT/ML 10ML Vial SC SCH (07:30)
[2024-06-09 07:32] VITALS: BP 141/73
[2024-06-09] MEDS ORDERED: Heparin Sodium 5000 Units/ML 1ML MDV SC SCH (09:00)
--- NOTE | 2024-06-09 09:00 | NUR ---
pt laying in bed eating breakfast, took po med without diff, a/ox3 forgetful, states she doesn't know how she got here, but does know she is at [facility], follows commands well, lungs are clear dim in bases, on r/a, resp even and unlabored, no cough noted, hrr, piv to lac site is clear and patent, btx4, abd flat soft nontender, voids via briefs at this time, skin has dressing to coccyx and ho, otherwise skin c/w/d, rosa barrientos, call light in reach.
[2024-06-09] MEDS ORDERED: Acetaminophen 325 MG TABLET PO PRN (09:35)
[2024-06-09] MEDS ORDERED: Polyethylene Glycol 3350 17 gm PO PRN (09:35)
[2024-06-09 15:52] VITALS: BP 187/97
--- NOTE | 2024-06-09 18:07 | NUR ---
pt a bit more confused edin, thought she is in [place], easily redirectable, no further changes this shift, call light in reach.
[2024-06-09 19:56] VITALS: BP 157/75
[2024-06-09] MEDS ORDERED: Apixaban 5 MG Tab PO SCH (21:00)
[2024-06-09] MEDS ORDERED: Famotidine 20 MG Tab PO SCH (21:00)
[2024-06-09] MEDS ORDERED: Mirtazapine 15 MG Tab PO SCH (21:00)
[2024-06-09] MEDS ORDERED: Melatonin 5 MG Tablet PO ONE (21:50)
[2024-06-09] MEDS ORDERED: QUEtiapine Fumarate 25 MG Tab PO ONE (21:50)
--- NOTE | 2024-06-09 22:20 | NUR ---
BREAK RN REPORTS PATIENT BECAME MORE CONFUSED & AGITATED NOT KNOWING WHERE FAMILY WAS AND IF THEY COULD FIND HER. SHE WANTED TO LEAVE AMA AND FIND THEM. HOSPITALIST DR MALLORY NOTIFIED AND ORDERED MELATONIN 5 MG AND SEROQUEL 25 MG BOTH X ONE. THIS RN WENT TO SEE PATIENT AND RECOGNIZED ME FROM PREVIOUS NIGHT AND BECAME MORE RELAXED HAVING CONVERSATION. AXO X2 WITH INCREASED CONFUSION. BED ALARM. WCTM.
[2024-06-10 03:34] VITALS: BP 150/89
--- NOTE | 2024-06-10 04:50 | NUR ---
SHIFT SUMMARY AXOX 2 AND BEDREST. PATIENT HAD INCREASED CONFUSION FROM PREVIOUS NIGHT. WANTED TO FIND HER FAMILY AND CONCERNED THEY DIDN'T KNOW WHERE SHE IS. DR MALLORY ORDERED MELATONIN 5 MG AND SEROQUEL 25 MG. PATIENT ABLE TO SLEEP A FEW HOURS LATER. DENIES CHEST PAIN, SOB, AND N/V. PIV INTACT. NS INFUSING @ 100 mL/HR. CALL LIGHT IN REACH. BED IN LOWEST POSITION AND ALARM ACTIVATED. WILL CONTINUE TO MONITOR UNTIL DAY SHIFT NURSE ASSUMES CARE.
[2024-06-10 05:05] LABS: BASOPHILS ABSOLUTE AUTO 0.02 K/mm3 (0.00-0.23); BASOPHILS PERCENT AUTO 0 % (0-2); EOSINOPHILS ABSOLUTE AUTO 0.14 K/mm3 (0.00-0.68); EOSINOPHILS PERCENT AUTO 2 % (0-6); Hematocrit 31.6 % (33.0-51.0); IMMATURE GRAN ABSOLUTE AUTO 0.02 K/mm3 (0.00-0.10); IMMATURE GRAN PERCENT AUTO 0 % (0-1); LYMPHOCYTES PERCENT AUTO 18 % (21-46); MONOCYTES ABSOLUTE AUTO 0.48 K/mm3 (0.16-1.47); MONOCYTES PERCENT AUTO 8 % (4-13); Mean Corpuscular HGB 27.2 pg (26.0-34.0); Mean Corpuscular HGB Conc 31.6 g/dL (31.5-36.5); Mean Corpuscular Volume 86 fL (80-100); Mean Platelet Volume 9.1 fL (9.1-12.4); NEUTROPHILS ABSOLUTE AUTO 4.38 K/mm3 (1.96-9.15); NEUTROPHILS PERCENT AUTO 71 % (41-73); Platelet Count 423 K/mm3 (150-400); RDW Coefficient Variation 18.9 % (11.7-14.2); RDW Standard Deviation 58.7 fL (35.1-46.3); Red Blood Cell Count 3.67 M/mm3 (3.80-5.20); White Blood Cell Count 6.14 K/mm3 (4.00-11.30)
[2024-06-10 05:36] LABS: Bun/Creatinine Ratio 23.6 (12.0-20.0); Calcium, Blood 10.2 mg/dL (8.5-10.1); Creatinine, Blood 1.4 mg/dL (0.40-1.00); Potassium, Blood 4.1 mmol/L (3.5-5.5)
[2024-06-10] MEDS ORDERED: Levothyroxine Sodium 0.075 MG Tab PO SCH (06:00)
[2024-06-10 07:34] VITALS: BP 130/72
[2024-06-10] MEDS ORDERED: Cyanocobalamin 500 MCG Tab PO SCH (09:00)
[2024-06-10] MEDS ORDERED: Allopurinol 100 MG Tab PO SCH (09:00)
[2024-06-10] MEDS ORDERED: Atorvastatin 10 MG Tab PO SCH (09:00)
[2024-06-10] MEDS ORDERED: Gabapentin 100 MG Cap PO SCH (09:00)
[2024-06-10 15:00] VITALS: BP 144/66
--- NOTE | 2024-06-10 17:58 | NUR ---
SHIFT SUMMARY: PT AOX2-3 BUT PLEASANTLY CONFUSED. ASKING QUESTIONS ABOUT WHERE SHE IS AND WHY SHES HERE BUT REMEMBERS HER OWN NAME AND WELL THIS RNS NAME. HAS BEEN RESTING MOST OF THE DAY ONLY OCCASIONALLY ASKING FOR SOME WATER. FAMILY CAME IN AND SPENT MOST OF THE DAY WITH HER. PT TIRED FROM ENTERTAINING. FOLLOWS COMMANDS AND WILL CALL APPROPRIATELY. PT CURRENTLY RESTING IN BED, BED IN LOWEST POSITION, AND CALL LIGHT IN REACH. CONTINUING CARE.
--- NOTE | 2024-06-10 18:02 | NUR ---
THIS INSOLE TAPER HAS REVIEWED AND AGREES WITH ALL NOTES AND ASSESSMENTS BY KIM ALONSO.
[2024-06-10 19:33] VITALS: BP 155/75
[2024-06-11 04:42] VITALS: BP 146/76
[2024-06-11 05:25] LABS: BASOPHILS ABSOLUTE AUTO 0.03 K/mm3 (0.00-0.23); BASOPHILS PERCENT AUTO 1 % (0-2); EOSINOPHILS ABSOLUTE AUTO 0.28 K/mm3 (0.00-0.68); EOSINOPHILS PERCENT AUTO 5 % (0-6); Hematocrit 32.2 % (33.0-51.0); IMMATURE GRAN ABSOLUTE AUTO 0.02 K/mm3 (0.00-0.10); IMMATURE GRAN PERCENT AUTO 0 % (0-1); LYMPHOCYTES ABSOLUTE AUTO 1.54 K/mm3 (0.84-5.20); LYMPHOCYTES PERCENT AUTO 28 % (21-46); MONOCYTES ABSOLUTE AUTO 0.51 K/mm3 (0.16-1.47); MONOCYTES PERCENT AUTO 9 % (4-13); Mean Corpuscular HGB 26.7 pg (26.0-34.0); Mean Corpuscular HGB Conc 31.1 g/dL (31.5-36.5); Mean Corpuscular Volume 86 fL (80-100); Mean Platelet Volume 10.1 fL (9.1-12.4); NEUTROPHILS ABSOLUTE AUTO 3.11 K/mm3 (1.96-9.15); NEUTROPHILS PERCENT AUTO 57 % (41-73); Platelet Count 445 K/mm3 (150-400); RDW Standard Deviation 59.3 fL (35.1-46.3); Red Blood Cell Count 3.74 M/mm3 (3.80-5.20); White Blood Cell Count 5.49 K/mm3 (4.00-11.30)
[2024-06-11 06:01] LABS: Bun/Creatinine Ratio 21.7 (12.0-20.0); Calcium, Blood 10.2 mg/dL (8.5-10.1); Creatinine, Blood 1.2 mg/dL (0.40-1.00); Potassium, Blood 3.7 mmol/L (3.5-5.5)
--- NOTE | 2024-06-11 06:38 | NUR ---
SHIFT SUMMARY AT START OF SHIFT, PT SLEEPING IN HER BED. PT IS PLEASANT AND COOPERATIVE WITH CARE. SHE ASKED FOR THE LIGHTS AND TV TO BE TURNED OFF APPROX 2300, AND WENT TO SLEEP. PT SLEPT PEACEFULLY FOR DURATION OF SHIFT.
[2024-06-11 08:14] VITALS: BP 168/78
[2024-06-11] MEDS ORDERED: Polyethylene Glycol 3350 17 gm PO SCH (14:00)
[2024-06-11] MEDS ORDERED: Docusate Sodium/Senna 1 Tab PO SCH (14:00)
[2024-06-11] MEDS ORDERED: Lactulose 20 GM/30 ML UDC PO SCH (14:00)
[2024-06-11 14:51] LABS: CORONAVIRUS COVID-19 AG Negative (NEGATIVE)
[2024-06-11 16:08] VITALS: BP 150/84
--- NOTE | 2024-06-11 18:39 | NUR ---
SHIFT SUMMARY: PT ORIENTED X2-3. PT ACCEPTED TO [facility] BUT HAS NOT HAD BM SINCE 06-08-24. MULTIPLE BOWEL MEDICATIONS PLACED AND GIVEN PER DR. MARIE REQUEST. COVID SWAB OBTAINED WITH A NEGATIVE RESULT. PT C/O HEADACHE ONCE THIS SHIFT. MEDICATED PER EMAR. PT WORKED WITH OT. OT STATED PT IS VERY WEAK AND EVEN HAS DIFFICULTY GETTING TO EDGE OF BED. PRESSURE SORE ON BUTTOCK REDRESSED. SKIN TEAR ON LEFT ASCENCIO REDRESSED. PICTURES TAKEN AND PLACED IN CHART. CALL LIGHT IN REACH. BED IN LOWEST POSITION.
[2024-06-11 20:12] VITALS: BP 148/89
[2024-06-12 02:20] VITALS: BP 143/69
--- NOTE | 2024-06-12 06:22 | NUR ---
SHIFT SUMMARY ASSUMED CARE OF PT AT 1900. PT A&O1 TO SELF, CONFUSED TO TIME, PLACE AND SITUATION. PT COOPERATIVE IN CARE AND ABLE TO EXPRESS NEEDS. PT DENIED CP/PRESSURE AND NO SOB. NO ACUTE EVENTS OVERNIGHT. BOWEL MOVEMENT WAS UNSUCCESSFUL. PT'S WOUND CARE COMPLETED OVERNIGHT. BED IN LOWEST POSITION AND CALL LIGHT WITHIN REACH.
[2024-06-12 07:15] VITALS: BP 175/83
[2024-06-12] MEDS ORDERED: Bisacodyl 10 MG Supp PR PRN (12:15)
[2024-06-12] MEDS ORDERED: Lactulose 20 GM/30 ML UDC PO SCH (13:00)
[2024-06-12 15:35] VITALS: BP 143/89
--- NOTE | 2024-06-12 17:18 | NUR ---
SHIFT SUMMARY PT IS A/OX2, ORIENTED TO SELF AND FAMILY. PT ACCEPTED TO [facility], AWAITING BM PRIOR TO DISCHARGE TO THE FACILITY. PT HAD A BM THIS EVENING, EXPECTED DISCHARGE TO [facility] TOMORROW. PT VISITED BY DAUGHTER THIS AFTERNOON. CALL LIGHT IS IN REACH, PT CALLS APPRORIATELY.
[2024-06-12 19:25] VITALS: BP 137/96
--- NOTE | 2024-06-13 01:58 | NUR ---
06/12/242037 PT LYING IN BED, DENIES ANY DISCOMFORT AT THIS TIME. WOUNDS TO BOTTOM AND L ASCENCIO, DRESSING C/D/I, R GREAT TOENAIL MISSING, BANDAID C/D/I. PT HAD 2 BM'S THIS SHIFT ALREADY, 1 LARGE ONE AND ONE EXTRA LARGE ONE. STOOL SOFTENERS HELD. NO OTHER APPARENT SIGNS OF DISTRESS. CALL LIGHT IS IN REACH. BED ALARM IS ON.
--- NOTE | 2024-06-13 02:13 | NUR ---
0000 PT LYING IN BED, EYES CLOSED, APPEARS TO BE RESTING. WAKES EASILY TO VERBAL STIMULI. NO APPARENT SIGNS OF DISTRESS. CALL LIGHT IS IN REACH. BED ALARM IS ON.
--- NOTE | 2024-06-13 02:14 | NUR ---
PT LYING IN BED, EYES CLOSED, APPEARS TO BE RESTING. BREATHING IS EVEN, UNLABORED. NO APPARENT SIGNS OF DISTRESS. CALL LIGHT IS IN REACH. BED ALARM IS ON.
[2024-06-13 04:30] VITALS: BP 135/72
--- NOTE | 2024-06-13 04:43 | NUR ---
PT IS AAO X 2. WOUND ON L ASCENCIO/BUTTOCK, AND THE L GREAT TOENAIL IS MISSING. DRESSINGS ARE ALL C/D/I. ON RA. BED ALARM IN USE. PT HAD 2 BM'S LAST NIGHT, ONE LARGE ONE AND ONE EXTRA LARGE ONE.
--- NOTE | 2024-06-13 06:30 | NUR ---
LINE SERVICE SUPERVISOR CHANGING PT, PT HAS HAD ANOTHER BM. NO OTHER APPARENT SIGNS OF DISTRESS. CALL LIGHT IS IN REACH. BED ALARM IS ON. NO OTHER CHANGES THIS SHIFT.
[2024-06-13 07:14] VITALS: BP 159/80
[2024-06-13 11:53] LABS: CORONAVIRUS COVID-19 AG Negative (NEGATIVE)
[2024-06-13] MEDS ORDERED: HUMULIN R100 UNIT/2 SC (13:01)
--- NOTE | 2024-06-13 15:35 | NUR ---
DISCHARGE: PT D/C @1530 VIA WHEELCHAIR WITH TRANSPORT AND DAUGHTER. IV REMOVED W/O COMPLICATIONS. REPORT GIVEN TO KIM RANDOLPH AT [facility]. NO QUESTIONS AT TIMES OF D/C.
== END 2024-06-13 15:33 | DRG 684 ==
LOC: ER 13:21 → MEDS 13:22
PROVIDERS: Emergency Medicine; Internal Medicine; ADMIT Family Medicine
DX: N17.9 Acute kidney failure, unspecified (principal); N18.30 Chronic kidney disease, stage 3 unspecified; E11.22 Type 2 diabetes mellitus with diabetic chronic kidney disease; I12.9 Hypertensive chronic kidney disease with stage 1 through stage 4 chronic kidney disease, or unspecified chronic kidney disease; E78.5 Hyperlipidemia, unspecified; Z66 Do not resuscitate; E03.9 Hypothyroidism, unspecified; I48.0 Paroxysmal atrial fibrillation; Z86.73 Personal history of transient ischemic attack (TIA), and cerebral infarction without residual deficits; K59.00 Constipation, unspecified; I25.10 Atherosclerotic heart disease of native coronary artery without angina pectoris; Z90.710 Acquired absence of both cervix and uterus; Z98.890 Other specified postprocedural states; R33.9 Retention of urine, unspecified; Z86.19 Personal history of other infectious and parasitic diseases; Z79.899 Other long term (current) drug therapy; Z79.01 Long term (current) use of anticoagulants; Z79.890 Hormone replacement therapy
CPT/HCPCS: 36415; 51701; 76770; 80048; 80053; 81001; 82306; 82330; 82947; 83970; 85025; 87086; 87426-QW; 93005; 93010; 96360-59; 96361; 96361-59; 96365; 96376; 97161; 97165; 97530; 99285-25; A9270; G0378; J0696; J1644; J7030; J7120

== ENCOUNTER → 2024-09-07 | Outpatient (CLI) | payer MEDICARE, OTHER ==
[~2024-09-07] MED LIST changes: +HUMULIN R100 UNIT/2 SC
[2024-09-07 18:33] LABS: Source, Urine Voided
[2024-09-07 19:33] LABS: Appearance, Urine Clear (Clear); Bilirubin, Urine Neg (Neg); Blood, Urine Neg (Neg); Color, Urine Yellow (P-Yellow); Glucose Qualitative, Urine Neg (Neg); Ketones, Urine Neg (Neg); Leukocyte Esterase, Urine Neg (Neg); Nitrite, Urine Neg (Neg); Protein, Urine 3+ (Neg); Urobilinogen, Urine NORM (Normal)
[2024-09-07 19:40] LABS: Bacteria Mod /hpf; Red Blood Cells, Urine 0-2 /hpf (0-2); Squamous Epithelial Cells Few /hpf (Few); White Blood Cells, Urine 0-2 /hpf (0-5)
== END | disposition home or self-care (01) ==
LOC: LAB SHORT 18:31 → LAB 18:31
PROVIDERS: Physician Assistant
DX: N39.0 Urinary tract infection, site not specified (principal)
CPT/HCPCS: 81001; 87077; 87086; 87186

== ENCOUNTER → 2024-10-04 | Outpatient (CLI) | payer MEDICARE, OTHER ==
[2024-10-04 11:05] LABS: Source, Urine Voided
[2024-10-04 12:13] LABS: Appearance, Urine Hazy (Clear); Bilirubin, Urine Neg (Neg); Blood, Urine Neg (Neg); Color, Urine Yellow (P-Yellow); Glucose Qualitative, Urine Neg (Neg); Ketones, Urine Neg (Neg); Leukocyte Esterase, Urine Neg (Neg); Nitrite, Urine Neg (Neg); Protein, Urine 3+ (Neg); Specific Gravity, Urine 1.025 (1.003-1.022); Urobilinogen, Urine NORM (Normal)
[2024-10-04 13:17] LABS: Amorphous Light (0-Heavy); Bacteria Few /hpf; Red Blood Cells, Urine 0-2 /hpf (0-2); Squamous Epithelial Cells Few /hpf (Few)
[2024-10-04 13:18] LABS: Hyaline Casts 0-2 /lpf (0-2)
== END ==
LOC: LAB SHORT 11:03 → LAB 11:03
PROVIDERS: Physician Assistant
DX: N39.0 Urinary tract infection, site not specified (principal)
CPT/HCPCS: 81001

== ENCOUNTER 2024-10-30 17:37 | Emergency (ER) | payer MEDICARE, OTHER ==
[~2024-10-30] VITALS: Ht 165.1 cm; Wt 70.3 kg
[2024-10-30 18:13] LABS: BASOPHILS ABSOLUTE AUTO 0.04 K/mm3 (0.00-0.23); BASOPHILS PERCENT AUTO 1 % (0-2); EOSINOPHILS ABSOLUTE AUTO 0.12 K/mm3 (0.00-0.68); EOSINOPHILS PERCENT AUTO 2 % (0-6); Hematocrit 36.9 % (33.0-51.0); IMMATURE GRAN ABSOLUTE AUTO 0.03 K/mm3 (0.00-0.10); IMMATURE GRAN PERCENT AUTO 0 % (0-1); LYMPHOCYTES ABSOLUTE AUTO 1.46 K/mm3 (0.84-5.20); LYMPHOCYTES PERCENT AUTO 18 % (21-46); MONOCYTES PERCENT AUTO 7 % (4-13); Mean Corpuscular HGB 28.4 pg (26.0-34.0); Mean Corpuscular HGB Conc 32.5 g/dL (31.5-36.5); Mean Corpuscular Volume 87 fL (80-100); Mean Platelet Volume 9.7 fL (9.1-12.4); NEUTROPHILS ABSOLUTE AUTO 5.83 K/mm3 (1.96-9.15); NEUTROPHILS PERCENT AUTO 72 % (41-73); Platelet Count 395 K/mm3 (150-400); RDW Coefficient Variation 14.7 % (11.7-14.2); RDW Standard Deviation 47.3 fL (35.1-46.3); Red Blood Cell Count 4.22 M/mm3 (3.80-5.20); White Blood Cell Count 8.08 K/mm3 (4.00-11.30)
[2024-10-30] MEDS ORDERED: METO25ER PO (18:15)
[2024-10-30 18:42] LABS: Albumin, Blood 3.3 g/dL (3.4-5.0); Albumin/Globulin Ratio 0.8 (0.8-1.8); Bilirubin, Total 0.6 mg/dL (0.1-1.0); Bun/Creatinine Ratio 21.6 (12.0-20.0); Calcium, Blood 9.1 mg/dL (8.5-10.1); Creatinine, Blood 0.88 mg/dL (0.40-1.00); Globulin, Blood 4.4 g/dL (2.2-4.0); Potassium, Blood 2.9 mmol/L (3.5-5.5); Total Protein, Blood 7.7 g/dL (6.4-8.2)
[2024-10-30] MEDS ORDERED: Potassium Chloride 20 MEQ TabCR PO ONE (19:15)
[2024-10-30 20:01] VITALS: BP 221/85
== END 2024-10-30 20:00 | disposition home or self-care (01) ==
LOC: ER 17:37
PROVIDERS: Student in an Organized Health Care Education/Training Program
DX: S09.90XA Unspecified injury of head, initial encounter (principal); E87.6 Hypokalemia; I12.9 Hypertensive chronic kidney disease with stage 1 through stage 4 chronic kidney disease, or unspecified chronic kidney disease; N18.9 Chronic kidney disease, unspecified; E11.22 Type 2 diabetes mellitus with diabetic chronic kidney disease; I25.10 Atherosclerotic heart disease of native coronary artery without angina pectoris; E03.9 Hypothyroidism, unspecified; W18.30XA Fall on same level, unspecified, initial encounter; Z79.899 Other long term (current) drug therapy; Z79.01 Long term (current) use of anticoagulants; Z79.890 Hormone replacement therapy; Z86.73 Personal history of transient ischemic attack (TIA), and cerebral infarction without residual deficits
CPT/HCPCS: 70450; 73560-RT; 80053; 85025; 93005; 93010; 99285-25; A9270

== ENCOUNTER → 2024-11-06 | Outpatient (CLI) | payer MEDICARE, OTHER ==
[~2024-11-06] MED LIST changes: +METO25ER PO
[2024-11-06 11:35] LABS: Source, Urine Clean Catch
[2024-11-06 13:27] LABS: Bilirubin, Urine Neg (Neg); Blood, Urine Neg (Neg); Glucose Qualitative, Urine Neg (Neg); Ketones, Urine Neg (Neg); Leukocyte Esterase, Urine Neg (Neg); Nitrite, Urine Neg (Neg); Protein, Urine 3+ (Neg); Specific Gravity, Urine 1.025 (1.003-1.022); Urobilinogen, Urine NORM (Normal)
[2024-11-06 14:02] LABS: Appearance, Urine Clear (Clear); Color, Urine Yellow (P-Yellow)
[2024-11-06 14:03] LABS: Bacteria Few /hpf; Red Blood Cells, Urine 0-2 /hpf (0-2); Squamous Epithelial Cells Few /hpf (Few); White Blood Cells, Urine 0-2 /hpf (0-5)
== END ==
LOC: LAB SHORT 11:33 → LAB 11:33
PROVIDERS: Physician Assistant
DX: N39.0 Urinary tract infection, site not specified (principal); R44.3 Hallucinations, unspecified
CPT/HCPCS: 81001

== ENCOUNTER 2025-02-20 22:28 | Emergency (ER) | payer MEDICARE, OTHER ==
[~2025-02-20] VITALS: Ht 165.1 cm; Wt 72.6 kg
[2025-02-20 23:01] LABS: BASOPHILS ABSOLUTE AUTO 0.04 K/mm3 (0.00-0.23); BASOPHILS PERCENT AUTO 1 % (0-2); EOSINOPHILS ABSOLUTE AUTO 0.11 K/mm3 (0.00-0.68); EOSINOPHILS PERCENT AUTO 2 % (0-6); Hematocrit 39.4 % (33.0-51.0); Hemoglobin 12.9 g/dL (11.5-16.0); IMMATURE GRAN ABSOLUTE AUTO 0.01 K/mm3 (0.00-0.10); IMMATURE GRAN PERCENT AUTO 0 % (0-1); LYMPHOCYTES ABSOLUTE AUTO 2.18 K/mm3 (0.84-5.20); LYMPHOCYTES PERCENT AUTO 30 % (21-46); MONOCYTES ABSOLUTE AUTO 0.58 K/mm3 (0.16-1.47); MONOCYTES PERCENT AUTO 8 % (4-13); Mean Corpuscular HGB Conc 32.7 g/dL (31.5-36.5); Mean Corpuscular Volume 88 fL (80-100); NEUTROPHILS ABSOLUTE AUTO 4.29 K/mm3 (1.96-9.15); NEUTROPHILS PERCENT AUTO 60 % (41-73); NRBC ABSOLUTE 0.00 K/mm3 (0.00-0.02); NRBC Auto 0.0 /100 WBC (0.0-0.2); Platelet Count 378 K/mm3 (150-400); RDW Coefficient Variation 15.1 % (11.7-14.2); RDW Standard Deviation 48.2 fL (35.1-46.3)
[2025-02-20 23:15] LABS: Alanine Aminotransfer (ALT/SGP 15.0 U/L (12-78); Albumin, Blood 3.6 g/dL (3.4-5.0); Albumin/Globulin Ratio 0.9 (0.8-1.8); Anion Gap 11.0 mmol/L (3-11); Aspartate Aminotrans (AST/SGOT 20.0 U/L (12-37); Bilirubin, Total 0.3 mg/dL (0.1-1.0); Blood Urea Nitrogen 27.0 mg/dL (8-24); CO2, Blood 24.0 mmol/L (21-32); Calcium, Blood 8.8 mg/dL (8.5-10.1); Chloride, Blood 109.0 mmol/L (98-108); Creatinine, Blood 1.26 mg/dL (0.40-1.00); Globulin, Blood 4.1 g/dL (2.2-4.0); Glucose, Blood 95.0 mg/dL (70-99); Potassium, Blood 4.2 mmol/L (3.5-5.5); Prothrombin Time Results 11.5 Sec (9.7-11.5); Sodium, Blood 140.0 mmol/L (136-145); Total Protein, Blood 7.7 g/dL (6.4-8.2)
[2025-02-21 00:16] VITALS: BP 147/80
== END 2025-02-21 00:16 | disposition home or self-care (01) ==
LOC: ER 22:28
PROVIDERS: Emergency Medicine
DX: S00.03XA Contusion of scalp, initial encounter (principal); M25.511 Pain in right shoulder; W18.30XA Fall on same level, unspecified, initial encounter; Y92.009 Unspecified place in unspecified non-institutional (private) residence as the place of occurrence of the external cause; I12.9 Hypertensive chronic kidney disease with stage 1 through stage 4 chronic kidney disease, or unspecified chronic kidney disease; E11.22 Type 2 diabetes mellitus with diabetic chronic kidney disease; N18.9 Chronic kidney disease, unspecified; I25.10 Atherosclerotic heart disease of native coronary artery without angina pectoris; E03.9 Hypothyroidism, unspecified; I48.0 Paroxysmal atrial fibrillation; Z79.899 Other long term (current) drug therapy; Z79.01 Long term (current) use of anticoagulants; Z79.890 Hormone replacement therapy
CPT/HCPCS: 70450; 72125; 73030; 80053; 85025; 85610; 93005; 93010; 99285-25; A9270

== ENCOUNTER → 2025-04-17 | Outpatient (CLI) | payer MEDICARE, OTHER ==
[2025-04-17 11:03] LABS: Bilirubin, Urine Neg (Neg); Color, Urine Yellow (P-Yellow); Glucose Qualitative, Urine Neg (Neg); Ketones, Urine Neg (Neg); Leukocyte Esterase, Urine 1+ (Neg); Protein, Urine 3+ (Neg); Specific Gravity, Urine 1.015 (1.003-1.022); Urobilinogen, Urine NORM (Normal)
[2025-04-17 11:20] LABS: Red Blood Cells, Urine 0-2 /hpf (0-2)
== END ==
LOC: LAB 10:10 → LAB SHORT 10:10
PROVIDERS: Physician Assistant
DX: N39.0 Urinary tract infection, site not specified (principal)
CPT/HCPCS: 81001; 87077; 87086; 87186

== ENCOUNTER → 2025-06-03 | Outpatient (CLI) | payer MEDICARE, OTHER ==
[2025-06-03 17:12] LABS: Source, Urine Clean Catch
[2025-06-03 17:26] LABS: Red Blood Cells, Urine Not Seen /hpf (0-2); White Blood Cells, Urine Not Seen /hpf (0-5)
== END | disposition home or self-care (01) ==
LOC: LAB SHORT 17:09 → LAB 17:09
PROVIDERS: Physician Assistant
DX: R53.83 Other fatigue (principal)
CPT/HCPCS: 81015